=== PATIENT | female | born 1950 | race African-American/Black ===

== ENCOUNTER 2024-04-16 15:51 | Emergency (ER) | payer OTHER ==
[~2024-04-16] VITALS: Ht 160 cm; Wt 48.4 kg
[2024-04-16 16:42] LABS: Hematocrit 22.6 % (36.0-46.0); Red Cell Distribution Width 15.8 % (11.8-14.3)
[2024-04-16 16:44] LABS: Hemoglobin 7.8 g/dL (12.2-16.2); Mean Corpuscular Hemoglobin 34.2 pg (28.0-32.0); Mean Corpuscular Hgb Conc. 34.7 g/dL (32.0-36.0); Mean Corpuscular Volume 98.5 fL (80.0-100.0); Platelet Count (auto) 189 10^3/uL (140-450); White Blood Cell 4.1 10^3/uL (4.4-10.8)
[2024-04-16 16:49] LABS: Urine Bacteria None Seen /hpf (None Seen)
[2024-04-16 16:57] LABS: Band Neutrophils % (manual) 0; Basophils % (manual) 0 (0.0-2.0); Blast Cells 0; Eosinophils % (manual) 0 (0-7); Metamyelocytes % 0; Myelocytes % 0; Promyelocytes % 0; Reactive Lymphocytes 0
[2024-04-16 17:06] LABS: Alanine Aminotransferase 71 U/L (7-40); Alkaline Phosphatase 203 U/L (46-116); Anion Gap 9 (5-15); Aspartate Aminotransferase 97 U/L (13-40); BUN/Creatinine Ratio 11.9 (10.0-20.0); Blood Urea Nitrogen 10 mg/dL (9-23); Calcium 10.1 mg/dL (8.7-10.4); Carbon Dioxide 18 mmol/L (20-31); Chloride 112 mmol/L (98-107); Glucose 82 mg/dL (74-106); Potassium 3.4 mmol/L (3.5-5.1); Sodium 139 mmol/L (136-145)
[2024-04-16 17:07] LABS: Albumin 3.8 g/dL (3.2-4.8); Bilirubin, Total 7.3 mg/dL (0.2-1.0); Total Protein 8.2 g/dL (5.7-8.2)
[2024-04-16 17:14] LABS: Lipase 1392 U/L (12-53)
[2024-04-16 17:25] LABS: Urine Blood Negative /uL (Negative); Urine Clarity Clear (Clear); Urine Color Dark-Yellow (Yellow); Urine Protein, UAD Negative (Negative); Urine Specific Gravity 1.014 (1.001-1.035); Urine Urobilinogen OVER mg/dL (Negative); Urine WBC 2 /hpf (0 - 5)
[2024-04-16 17:42] LABS: Anisocytosis Slight; Lymphocytes % (manual) 43 (10.0-50.0); Monocytes % (manual) 13 (0-12); Platelet Estimate Adequate
[2024-04-16 17:43] LABS: Large Platelets MODERATE; Ovalocytes FEW; Sickle Cells FEW; Target Cell FEW
--- NOTE | 2024-04-16 18:31 | DVH ---
Exam: CT CT AB PEL WITH IV CON ONLY History: ABD PAIN Comparison Study: None available at time of dictation. TECHNIQUE: Multidetector CT of the abdomen was performed from lung bases to pubic symphysis. Imaging was performed without IV contrast. Axial, coronal and sagittal multiplanar reformats were obtained fr om the axial data set by the technologist. Radiation Dose Information: CT Dose: CTDI volume is 5.07 mGy. Dose-length product is 254.65 mGy*cm FINDINGS: Evaluation of solid organs is limited due to lack of intravenous contrast use. Findings: Lung Bases: No acute or significant lung base finding. Normal heart size. No pleural or pericardial effusion. Liver: The liver is normal in size. No focal lesions. Gallbladder and Biliary Tree: Calcified gallstone Spleen: Appears diffusely calcified etiology uncertain. Tissue density is 664.93 HU Pancreas: The pancreas is grossly normal in appearance. Adrenal Glands: Unremarkable Kidneys: Kidneys are grossly normal without calculi or hydronephrosis. Bladder: Grossly unremarkable for degree of distention. Bowel: The stomach is grossly normal in appearance. Small bowel and colon are normal in caliber and d istribution. The appendix is not visualized; however, no secondary findings of acute appendicitis id entified. Ascites: Absent Lymphadenopathy: No mesenteric, retroperitoneal or periportal lymphadenopathy. Abdominal Wall and Mesentery: Unremarkable. Vasculature: The visualized abdominal aorta is normal in size and caliber. Evaluation of abdominal a nd pelvic vessels is limited due to lack of intravenous contrast. Pelvic Organs: Unremarkable Musculoskeletal: No aggressive focal bony lesions, acute fractures or dislocation. Soft tissues: Unremarkable IMPRESSION: 1. Marked increased density throughout the spleen suggesting dense calcification tissue density is 66 4 HU. Etiology uncertain is too dense to suggest hemorrhage or contrast. Aorta at the same level is 199.66 HU. 2. Gallbladder is filled with gallstones. 3. Vertical striations in multiple lumbar vertebra consistent with osseous hemangiomas. 4. No findings to suggest bowel obstruction. 5. No free air or free fluid. Radiation optimization: All CT scans at this facility use at least one of these dose optimization nikunj hniques: automated exposure control mA and/or kV adjustment per patient size (includes targeted exam s where dose is matched to clinical indication) or iterative reconstruction.
--- NOTE | 2024-04-16 19:31 | DVH ---
INDICATION: Pain. TECHNIQUE: Multiple real-time sonographic images of the abdomen were obtained. COMPARISON: None FINDINGS: The liver is homogenous in echogenicity. The liver measures 13.38 cm. No intrahepatic bili tete ductal dilatation is noted. The gallbladder wall measures 0.16 cm and is unremarkable. Cholelithiasis. Ultrasound De La Cruz's sign is negative. The common duct measures 8.7 mm cm and is unremarkable. No pericholecystic fluid is no laxmi. The right kidney measures 7.23 cm. Mild right hydronephrosis. The left kidney measures 9.78 cm. No hydronephrosis. The spleen not visualized The pancreas is not well visualized due to obscuration from bowel gas. The visualized portions of the IVC and aorta are grossly unremarkable. Proximal abdominal aorta measu res 2.8 cm. Mid abdominal aorta measures 2.3 cm. Distal abdominal aorta measures 1.58 cm. IMPRESSION: 1. Cholelithiasis with dilated common bile duct measuring 8.7 mm. Negative ultrasound De La Cruz's sign. 2. 7.23 cm long right kidney with mild hydronephrosis.
[2024-04-16] MEDS: SODIUM CHLORIDE 0.9% 1,000 ML IV ONE (19:35)
[2024-04-16] MEDS: IOHEXOL 300 MG/ML 100ML BOTTLE IJ ONE (19:35)
[2024-04-16 19:39] VITALS: PULSE 75; RESP 16; O2SAT 98
--- NOTE | 2024-04-17 02:55 | ED.PDOC ---
GI ASSESSMENT HPI Comments 40-year-old female brought in by daughter. Daughter states that they were at the grocery store today when she noticed her mother's eyes looked yellow. Patient states she has not noticed some mild upper abdominal pain over the last 2-3 weeks but thought nothing of it. Daughter states that patient's diet has been poor, eating fast food and top ramen noodles. No fever no chills no nausea no vomiting no diarrhea. Nothing makes it better, nothing makes it worse. Currently during exam patient reports very mild to little pain in her stomach region. Patient states she had not noticed her I called her turning yellow. Chief Complaint: Abdominal Pain Time Seen by MD: 16:02 Primary Care Provider: NARESH Reviewed Notes: Nurses Notes Allergies: Coded Allergies: Penicillins (Verified Allergy, Unknown, 04/16/24) Sulfa Antibiotics (Verified Allergy, Unknown, 04/16/24) Information Source: Patient Mode of Arrival: Ambulatory Past Medical History PAST MEDICAL HISTORY: Denies Family History Family History: Reviewed,noncontributory to illness, No family hx of Cancer, No family hx of DM, No family hx of Heart rahul, No family hx of HTN, No family hx ofKidney rahul, No family hx of Liver rahul, No family hx of Lung rahul, No family hx of Stroke Constitutional: reports: fatigue; denies: chills, diaphoresis, fever, malaise, sweats, weakness, others EENTM: denies: blurred vision, double vision, ear bleeding, ear discharge, ear drainage, ear pain, ear ringing, eye pain, eye redness, hearing loss, mouth pain, mouth swelling, nasal discharge, nose bleeding, nose congestion, nose pain, photophobia, tearing, throat pain, throat swelling, voice changes, others Respiratory: denies: cough, hemoptysis, orthopnea, SOB at rest, shortness of breath, SOB with excertion, stridor, wheezing, others Cardiovascular: denies: chest pain, dizzy spells, diaphoresis, Dyspnea on exertion, edema, irregular heart beat, left arm pain, lightheadedness, palpitations, PND, syncope, others Gastrointestinal: reports: abdominal pain; denies: abdomen distended, blood streaked bowels, constipated, diarrhea, dysphagia, difficulty swallowing, hematemesis, melena, nausea, poor appetite, poor fluid intake, rectal bleeding, rectal pain, vomiting, others Genitourinary: denies: abnormal vagina bleeding, burning, dyspareunia, dysuria, flank pain, frequency, hematuria, incontinence, pain, , vagina discharge, urgency, others Neurological: denies: dizziness, fainting, headache, left sided numbness, left sided weakness, numbness, paresthesia, pre-existing deficit, right sided numbness, right sided weakness, seizure, speech problems, tingling, tremors, weakness, others Musculoskeletal: denies: back pain, gout, joint pain, joint swelling, muscle pain, muscle stiffness, neck pain, others Integumetry: reports: others (Jaundice); denies: bruises, change in color, change in hair/nails, dryness, laceration, lesions, lumps, rash, wounds Hematologic/Lymphatic: reports: anemia Physical Exam General Appearance: No Apparent Distress, Normal HEENT: Normal ENT Inspection, Pharynx Normal, Scleral Icterus (L), Scleral Icterus (R), TMs Normal Neck: Full Range of Motion, Non-Tender, Normal, Normal Inspection Respiratory: Chest Non-Tender, Lungs Clear, No Accessory Muscle Use, No Respiratory Distress, Normal Breath Sounds Cardiovascular: No Edema, No JVD, No Murmur, No Gallop, Normal Peripheral Pulses, Regular Rate/Rhythm Breast Exam: Deferred Gastrointestinal: No Organomegaly, Non Tender, No Pulsatile Mass, Normal Bowel Sounds, Soft Genitalia: Deferred Pelvic: Deferred Rectal: Deferred Extremities: No calf tenderness, Normal capillary refill, Normal inspection, Normal range of motion, Non-tender, No pedal edema Musculoskeletal : Apperance: Normal Neurologic: Alert, rn heart II-XII nml as Tested, No Motor Deficits, Normal Affect, Normal Mood, No Sensory Deficits Cerebellar Function: Normal Reflexes: Normal Skin: Dry, Normal Color, Warm Lymphatic: No Adenopathy Was a procedure done? Was a procedure done?: No GI differential Dx Differential Diagnosis: Cholangitis, Cholecystitis, Constipation, Gastritis/PUD, Gastroenteritis, GI hemorrhage X-Ray, Labs, Meds, VS Vital Signs Date Time Temp Pulse Resp B/P (MAP) Pulse Ox O2 Delivery O2 Flow Rate FiO2 04/16/24 19:39 98.4 75 16 124/55 (78) 98 98.4 04/16/24 19:39 75 16 98 Room Air* 0 21 04/16/24 16:00 98.8 100 20 139/82 (101) 98 Lab Test 04/16/24 16:48 04/16/24 16:20 Range/Units Urine Color Dark-yellow Yellow Urine Clarity Clear Clear Urine pH 6.0 5.0-9.0 Urine Specific [place] 1.014 1.001-1.035 Urine Protein Negative Negative Urine Ketones Negative Negative Urine Blood Negative Negative /uL Urine Nitrite Negative Negative Urine Bilirubin 2+ H Negative Urine Urobilinogen Over Negative mg/dL Urine Leukocyte Esterase Negative Negative /uL Urine RBC <1 0 - 4 /hpf Urine WBC 2 0 - 5 /hpf Urine Squamous Epithelial Cells None seen <5 /hpf Urine Bacteria None seen None Seen /hpf Urine Glucose Normal Normal mg/dL White Blood Count 4.1 L 4.4-10.8 10^3/uL Red Blood Count 2.30 L 4.0-5.20 10^6/uL Hemoglobin 7.8 L 12.2-16.2 g/dL Hematocrit 22.6 L 36.0-46.0 % Mean Corpuscular Volume 98.5 80.0-100.0 fL Mean Corpuscular Hemoglobin 34.2 H 28.0-32.0 pg Mean Corpuscular Hemoglobin Concent 34.7 32.0-36.0 g/dL Red Cell Distribution Width 15.8 H 11.8-14.3 % Platelet Count 189 140-450 10^3/uL Mean Platelet Volume 9.9 6.9-10.8 fL Neutrophils (%) (Auto) 37.0-80.0 % Lymphocytes (%) (Auto) 10.0-50.0 % Monocytes (%) (Auto) 0.0-12.0 % Basophils (%) (Auto) 0.0-2.0 % Neutrophils # (Auto) 1.6-8.6 10 ^3/uL Lymphocytes # (Auto) 0.4-5.4 10 ^3/uL Monocytes # (Auto) 0-1.3 10 ^3/uL Differential Total Cells Counted 100.0 100 Neutrophils % (Manual) 44 37.0-80.0 Band Neutrophils % (Manual) 0 Lymphocytes % (Manual) 43 10.0-50.0 Monocytes % (Manual) 13 H 0-12 Eosinophils % (Manual) 0 0-7 Basophils % (Manual) 0 0.0-2.0 Metamyelocytes % (manual) 0 Myelocytes % (Manual) 0 Promyelocytes % (Manual) 0 Blast Cells % (Manual) 0 Nucleated Red Blood Cells 7.0 % Reactive Lymphocytes 0 Platelet Estimate Adequate Large Platelets Moderate Anisocytosis (manual) Slight Sickle Cells Few Target Cells Few Ovalocytes Few [place] Cells Few Sodium Level 139 136-145 mmol/L Potassium Level 3.4 L 3.5-5.1 mmol/L Chloride Level 112 H 98-107 mmol/L Carbon Dioxide Level 18 L 20-31 mmol/L Anion Gap 9 5-15 Blood Urea Nitrogen 10 9-23 mg/dL Creatinine 0.84 0.550-1.02 mg/dL Glomerular Filtration Rate Calc 73 >90 mL/min BUN/Creatinine Ratio 11.9 10.0-20.0 Serum Glucose 82 74-106 mg/dL Calcium Level 10.1 8.7-10.4 mg/dL Total Bilirubin 7.3 H 0.2-1.0 mg/dL Aspartate Amino Transferase (AST) 97 H 13-40 U/L Alanine Aminotransferase (ALT) 71 H 7-40 U/L Alkaline Phosphatase 203 H 46-116 U/L Ammonia 10 L 11-32 umol/L Total Protein 8.2 5.7-8.2 g/dL Albumin 3.8 3.2-4.8 g/dL Lipase 1392 H 12-53 U/L Current Medications Medications (Trade) Dose Ordered Sig/Jodi Route Start Time Stop Time Status Last Admin Sodium Chloride 1,000 ml @ 1,000 mls/hr Q1H ONCE IV 04/16/24 18:30 04/16/24 19:29 DC 04/16/24 19:35 X-Ray, Labs, Meds, VS Comment Pending call back from [facility] for transfer to higher level of care Patient will require ERCP further evaluation of obstruction of common bile duct Time of 1ST Reevaluation: 02:55 Reevaluation 1ST: Unchanged Patient Education/Counseling: Diagnosis, Treatment Family Education/Counseling: Diagnosis, Treatment Assigned to Dr. Souza discussed with Dr. Stern Change of Shift?: Yes Departure 1 Departure Time of Disposition: 02:53 Impression: Primary Impression: Acute gallstone pancreatitis Additional Impressions: Gallstones Common bile duct dilatation Sickle cell anemia Qualified Codes: D57.1 - Sickle-cell disease without crisis Disposition: 02 SHORT TERM HOSPITAL Condition: Stable Discharged With: Self Critical Care Note Critical Care Time?: No Stability Stability form required: No Heart Score Heart Score: Heart Score Response (Comments) Value History N/A 0 EKG N/A 0 Age N/A 0 Risk Factors N/A 0 Troponin N/A 0 Total 0 ANKITA AQUINOP Apr 17, 2024 02:55
[2024-04-17 04:30] VITALS: BP 126/61; PULSE 82; RESP 24; TEMP 98; O2SAT 94
== END 2024-04-17 00:29 | disposition short-term general hospital (02) ==
LOC: ER 15:51
DX: K85.10 Biliary acute pancreatitis without necrosis or infection (principal); D57.1 Sickle-cell disease without crisis; Z88.0 Allergy status to penicillin; Z88.2 Allergy status to sulfonamides
CPT/HCPCS: 36415; 74177; 76700; 80053; 81001; 82140; 83690; 85007; 85027; 96360; 96361; 99285; Q9967

== ENCOUNTER 2024-05-15 11:46 | Inpatient (IN) | payer OTHER ==
[~2024-05-15] VITALS: Ht 160 cm; Wt 44.0 kg
[2024-05-15] MEDS: SODIUM CHLORIDE 0.9% 500 ML IV ONE (12:13)
--- NOTE | 2024-05-15 12:56 | DVH ---
CHEST RADIOGRAPH Indication: weakness Technique: Single frontal view of the chest was obtained Comparison: None FINDINGS: Lines and Tubes: None Lungs: No focal consolidation. Diffuse bilateral interstitial prominence. Mild hyperinflation of the lungs. Pleura: No effusion. No pneumothorax. Cardiomediastinal contours: Unremarkable Bones: No acute osseous abnormality. IMPRESSION: 1. Diffuse bilateral interstitial prominence. Recommend correlation for possible pulmonary vascular congestion, atypical infection, or pneumonitis. 2. Mild hyperinflation of the lungs. HS:Y
[2024-05-15 13:00] VITALS: PULSE 82; RESP 22; O2SAT 100
[2024-05-15 13:30] LABS: Alkaline Phosphatase 73 U/L (46-116); Anion Gap 11 (5-15); Calcium 9.9 mg/dL (8.7-10.4); Sodium 139 mmol/L (136-145)
[2024-05-15 13:31] LABS: Total Protein 6.9 g/dL (5.7-8.2)
[2024-05-15 14:06] LABS: Hematocrit 12.4 % (36.0-46.0); White Blood Cell 8.4 10^3/uL (4.4-10.8)
[2024-05-15 14:08] LABS: Mean Corpuscular Hemoglobin 35.6 pg (28.0-32.0); Mean Corpuscular Hgb Conc. 35.2 g/dL (32.0-36.0); Platelet Count (auto) 138 10^3/uL (140-450); Red Blood Cells 1.23 10^6/uL (4.0-5.20)
[2024-05-15 14:10] LABS: Alanine Aminotransferase 30 U/L (7-40); BUN/Creatinine Ratio 32.8 (10.0-20.0)
[2024-05-15 14:11] LABS: COVID19 ANTIGEN SOFIA FIA NEGATIVE (NEGATIVE)
[2024-05-15 14:11] LABS: Albumin 2.9 g/dL (3.2-4.8); Aspartate Aminotransferase 162 U/L (13-40); Blood Urea Nitrogen 41 mg/dL (9-23); Carbon Dioxide 19 mmol/L (20-31); Chloride 109 mmol/L (98-107); Glucose 163 mg/dL (74-106)
[2024-05-15 14:12] LABS: Lactic Acid w/Reflex 5.5 mmol/L (0.4-2.0)
[2024-05-15 14:16] LABS: Red Cell Distribution Width 23.2 % (11.8-14.3)
[2024-05-15 14:18] LABS: Band Neutrophils % (manual) 0; Basophils % (manual) 0 (0.0-2.0); Blast Cells 0; Eosinophils % (manual) 0 (0-7); Hemoglobin 4.4 g/dL (12.2-16.2); Metamyelocytes % 0; Myelocytes % 0; Promyelocytes % 0; Reactive Lymphocytes 0
[2024-05-15 14:36] LABS: Large Platelets FEW; Lymphocytes % (manual) 21 (10.0-50.0); Monocytes % (manual) 13 (0-12); Platelet Estimate Decrea
[2024-05-15 14:37] LABS: Anisocytosis Slight; Hypochromia Slight; Macrocytosis Slight; Target Cell MODERATE
[2024-05-15 14:40] LABS: Sickle Cells FEW
--- NOTE | 2024-05-15 15:18 | DVHHP2 ---
Review of Systems Allergies: Coded Allergies: Penicillins (Verified Allergy, Unknown, 04/16/24) Sulfa Antibiotics (Verified Allergy, Unknown, 04/16/24) Exam Vital Signs Vital Signs Date Time Temp Pulse Resp B/P (MAP) Pulse Ox O2 Delivery O2 Flow Rate FiO2 05/15/24 12:11 99 11 106/60 (75) 97 05/15/24 11:51 97.5 Labs/Xrays Labs Test 05/15/24 15:00 05/15/24 13:41 05/15/24 13:00 05/15/24 12:53 Range/Units White Blood Count 8.4 4.4-10.8 10^3/uL Red Blood Count 1.23 L 4.0-5.20 10^6/uL Hemoglobin 4.4 *L 12.2-16.2 g/dL Hematocrit 12.4 L 36.0-46.0 % Mean Corpuscular Volume 101.0 H 80.0-100.0 fL Mean Corpuscular Hemoglobin 35.6 H 28.0-32.0 pg Mean Corpuscular Hemoglobin Concent 35.2 32.0-36.0 g/dL Red Cell Distribution Width 23.2 H 11.8-14.3 % Platelet Count 138 L 140-450 10^3/uL Mean Platelet Volume 9.9 6.9-10.8 fL Neutrophils (%) (Auto) 37.0-80.0 % Lymphocytes (%) (Auto) 10.0-50.0 % Monocytes (%) (Auto) 0.0-12.0 % Basophils (%) (Auto) 0.0-2.0 % Neutrophils # (Auto) 1.6-8.6 10 ^3/uL Lymphocytes # (Auto) 0.4-5.4 10 ^3/uL Monocytes # (Auto) 0-1.3 10 ^3/uL Differential Total Cells Counted 100.0 100 Neutrophils % (Manual) 66 37.0-80.0 Band Neutrophils % (Manual) 0 Lymphocytes % (Manual) 21 10.0-50.0 Monocytes % (Manual) 13 H 0-12 Eosinophils % (Manual) 0 0-7 Basophils % (Manual) 0 0.0-2.0 Metamyelocytes % (manual) 0 Myelocytes % (Manual) 0 Promyelocytes % (Manual) 0 Blast Cells % (Manual) 0 Nucleated Red Blood Cells 4.0 % Reactive Lymphocytes 0 Platelet Estimate Decrea Large Platelets Few Hypochromasia (manual) Slight Anisocytosis (manual) Slight Macrocytosis Slight Sickle Cells Few Target Cells Moderate Schistocytes Few SARS-CoV-2 Antigen (Rapid) Negative NEGATIVE Sodium Level 139 136-145 mmol/L Potassium Level 4.0 3.5-5.1 mmol/L Chloride Level 109 H 98-107 mmol/L Carbon Dioxide Level 19 L 20-31 mmol/L Anion Gap 11 5-15 Blood Urea Nitrogen 41 H 9-23 mg/dL Creatinine 1.25 H 0.550-1.02 mg/dL Glomerular Filtration Rate Calc 45 >90 mL/min BUN/Creatinine Ratio 32.8 H 10.0-20.0 Serum Glucose 163 H 74-106 mg/dL Calcium Level 9.9 8.7-10.4 mg/dL Total Bilirubin 5.0 H 0.2-1.0 mg/dL Aspartate Amino Transferase (AST) 162 H 13-40 U/L Alanine Aminotransferase (ALT) 30 7-40 U/L Alkaline Phosphatase 73 46-116 U/L Total Protein 6.9 5.7-8.2 g/dL Albumin 2.9 L 3.2-4.8 g/dL Assessment/Plan Plan discussed with: Patient TEE RODRIGUEZ MEDICAID SERVICE COORDINATOR May 15, 2024 15:18
[2024-05-15] MEDS ORDERED: MORPHINE SULFATE INJ 2 MG/ml SYRG IV PRN (16:15)
[2024-05-15] MEDS ORDERED: NITROGLYCERIN 0.4 MG SL TAB SL PRN (16:15)
--- NOTE | 2024-05-15 16:26 | DVHHP2 ---
History of Present Illness HPI 74 F who comes to ER for weakness. She was discharged from this facility end of April after blood transfusion as she has sickle cell anemia and takes hydroxyurea at home. She return today with a hgb of 4.4 and lactic acidemia in the setting of anemia and volume depletion. She will be admitted to [facility] for 3 units PRBC transfusion and supportive care. Home Meds No Active Prescriptions or Reported Meds Chief Complaint of Abdominal/F: Nausea Past Medical History Patient Family History: Patient reports no known family medical history. Review of Systems Constitutional: Weakness Ears, Nose, & Throat: No symptom reported Eyes: No symptom reported Pulmonary/Respiratory: No symptom reported Gastrointestinal: Nausea Musculoskeletal: No symptom reported Psychiatric: No symptom reported H&P Exam Vital Signs Vital Signs Date Time Temp Pulse Resp B/P (MAP) Pulse Ox O2 Delivery O2 Flow Rate FiO2 05/15/24 12:11 99 11 106/60 (75) 97 05/15/24 11:51 97.5 General Appeara: Well developed Neck Exam: Normal inspection Abdominal Exam: Soft Back Exam: Normal inspection Labs/Xrays Labs Test 05/15/24 15:41 05/15/24 15:00 05/15/24 13:41 05/15/24 13:00 Range/Units Lactic Acid Level 3.9 *H 0.4-2.0 mmol/L White Blood Count 8.4 4.4-10.8 10^3/uL Red Blood Count 1.23 L 4.0-5.20 10^6/uL Hemoglobin 4.4 *L 12.2-16.2 g/dL Hematocrit 12.4 L 36.0-46.0 % Mean Corpuscular Volume 101.0 H 80.0-100.0 fL Mean Corpuscular Hemoglobin 35.6 H 28.0-32.0 pg Mean Corpuscular Hemoglobin Concent 35.2 32.0-36.0 g/dL Red Cell Distribution Width 23.2 H 11.8-14.3 % Platelet Count 138 L 140-450 10^3/uL Mean Platelet Volume 9.9 6.9-10.8 fL Neutrophils (%) (Auto) 37.0-80.0 % Lymphocytes (%) (Auto) 10.0-50.0 % Monocytes (%) (Auto) 0.0-12.0 % Basophils (%) (Auto) 0.0-2.0 % Neutrophils # (Auto) 1.6-8.6 10 ^3/uL Lymphocytes # (Auto) 0.4-5.4 10 ^3/uL Monocytes # (Auto) 0-1.3 10 ^3/uL Differential Total Cells Counted 100.0 100 Neutrophils % (Manual) 66 37.0-80.0 Band Neutrophils % (Manual) 0 Lymphocytes % (Manual) 21 10.0-50.0 Monocytes % (Manual) 13 H 0-12 Eosinophils % (Manual) 0 0-7 Basophils % (Manual) 0 0.0-2.0 Metamyelocytes % (manual) 0 Myelocytes % (Manual) 0 Promyelocytes % (Manual) 0 Blast Cells % (Manual) 0 Nucleated Red Blood Cells 4.0 % Reactive Lymphocytes 0 Platelet Estimate Decrea Large Platelets Few Hypochromasia (manual) Slight Anisocytosis (manual) Slight Macrocytosis Slight Sickle Cells Few Target Cells Moderate Schistocytes Few SARS-CoV-2 Antigen (Rapid) Negative NEGATIVE Test 05/15/24 12:53 Range/Units Sodium Level 139 136-145 mmol/L Potassium Level 4.0 3.5-5.1 mmol/L Chloride Level 109 H 98-107 mmol/L Carbon Dioxide Level 19 L 20-31 mmol/L Anion Gap 11 5-15 Blood Urea Nitrogen 41 H 9-23 mg/dL Creatinine 1.25 H 0.550-1.02 mg/dL Glomerular Filtration Rate Calc 45 >90 mL/min BUN/Creatinine Ratio 32.8 H 10.0-20.0 Serum Glucose 163 H 74-106 mg/dL Calcium Level 9.9 8.7-10.4 mg/dL Total Bilirubin 5.0 H 0.2-1.0 mg/dL Aspartate Amino Transferase (AST) 162 H 13-40 U/L Alanine Aminotransferase (ALT) 30 7-40 U/L Alkaline Phosphatase 73 46-116 U/L Total Protein 6.9 5.7-8.2 g/dL Albumin 2.9 L 3.2-4.8 g/dL Assessment/Plan Primary Diagnosis 1) Anemia 2) Sickle cell Dx 3) Hyperbilirubinemia 2/2 sickle cell Dz, had recent ERCP as outside facility with sphincterotomy, no obstruction seen 04/17/2024 4) Lactic acidemia plan; admit tele obs, transfuse 3 units prbcs, pt recently seen at outside facility on 04/17/24 for elevated bilirubin and had ercp with spincterotomy but no obstruction or stones seen, rather elevated bilirubin deemed to be in the setting of sickle cell Dz and cell turnover, IV hydration, repeat H/H after blood transfusion, obs Plan discussed with: Other ( n) SANJANA SHUKLA MD May 15, 2024 16:26
[2024-05-15] MEDS: SODIUM CHLORIDE 0.9% 1,000 ML IV ONE (16:32)
[2024-05-15 16:35] LABS: Urine Amorphous Crystal FEW /hpf (None Seen); Urine Bacteria FEW /hpf (None Seen); Urine Blood 3+ /uL (Negative); Urine Clarity Turbid (Clear); Urine Color Dark-Brown (Yellow); Urine Protein, UAD 2+ (Negative); Urine Specific Gravity 1.011 (1.001-1.035); Urine Urobilinogen Normal (Negative); Urine WBC 32 /hpf (0 - 5); Urine WBC Clumps PRESENT /hpf (None Seen); Urine pH 6.5 (5.0-9.0)
[2024-05-15 17:41] VITALS: BP 126/57; PULSE 82; RESP 22; TEMP 97.9; O2SAT 100; O2SAT 99
[2024-05-15 17:44] LABS: INR 1.18 (0.9-1.15); Prothrombin Time 12.4 sec (9.3-11.8)
[2024-05-15] MEDS ORDERED: ONDANSETRON HCL 4 MG/2 ML VIAL IV ONE (18:00)
[2024-05-15] MEDS: LORazepam 2MG/ML-1ML VIAL IV ONE (18:11)
--- NOTE | 2024-05-15 18:20 | ED.PDOC ---
History of Present Illness HPI Comments This is a 74-year-old female who comes in with chief complaint of generalized weakness. According to the family, the patient was seen by her primary care doctor today. She went to the restroom and became very weak. They also noticed that the patient had blood in the toilet which they thought was hematuria. Her vital signs have remained normal. Currently she is on 2 L of oxygen but at that time her oxygen saturation was only 78%. The patient was then increased on her oxygen and transported to our facility. She does have a history of sickle cell disease as well as gallbladder disease but they are stating that she seems to be more weak. The patient was transferred to our facility by EMS. She has been seen at [facility] in the past. Chief Complaint: General Weakness Time Seen by MD: 11:55 Primary Care Provider: UNKNOWN Reviewed Notes: Nurses Notes, Glass Scullion Notes, Medications, Allergies (Allergies listed above) Allergies: Coded Allergies: Penicillins (Verified Allergy, Unknown, 04/16/24) Sulfa Antibiotics (Verified Allergy, Unknown, 04/16/24) Home Meds No Active Prescriptions or Reported Meds Information Source: Patient, Emergency Med Personnel Mode of Arrival: EMS Severity: Moderate Timing: Days Duration: Since onset Prehospital treatment: Oncology Pharmacist, IVF Associated signs and symptoms Generalized weakness, electrolyte imbalance Past Medical History PAST MEDICAL HISTORY: Gallstones Past Medical History (Other): Sickle cell disease Surgical History (Other): Right foot surgery ENTERPRISE APPLICATION ADMINISTRATOR History: Denies all ENTERPRISE APPLICATION ADMINISTRATOR Hx Family History Family History: Family hx of DM Social History Smoker: Non-Smoker Alcohol: Denies ETOH Use Drugs: Marijuana Lives In: Home Constitutional: reports: weakness; denies: chills, diaphoresis, fatigue, fever, malaise, sweats, others EENTM: denies: blurred vision, double vision, ear bleeding, ear discharge, ear drainage, ear pain, ear ringing, eye pain, eye redness, hearing loss, mouth pain, mouth swelling, nasal discharge, nose bleeding, nose congestion, nose pain, photophobia, tearing, throat pain, throat swelling, voice changes, others Respiratory: denies: cough, hemoptysis, orthopnea, SOB at rest, shortness of breath, SOB with excertion, stridor, wheezing, others Cardiovascular: denies: chest pain, dizzy spells, diaphoresis, Dyspnea on exertion, edema, irregular heart beat, left arm pain, lightheadedness, palpitations, PND, syncope, others Gastrointestinal: denies: abdomen distended, abdominal pain, blood streaked bowels, constipated, diarrhea, dysphagia, difficulty swallowing, hematemesis, melena, nausea, poor appetite, poor fluid intake, rectal bleeding, rectal pain, vomiting, others Genitourinary: reports: hematuria; denies: abnormal vagina bleeding, burning, dyspareunia, dysuria, flank pain, frequency, incontinence, pain, , vagina discharge, urgency, others Neurological: denies: dizziness, fainting, headache, left sided numbness, left sided weakness, numbness, paresthesia, pre-existing deficit, right sided numbness, right sided weakness, seizure, speech problems, tingling, tremors, weakness, others Musculoskeletal: denies: back pain, gout, joint pain, joint swelling, muscle pain, muscle stiffness, neck pain, others Integumetry: denies: bruises, change in color, change in hair/nails, dryness, laceration, lesions, lumps, rash, wounds, others Allergic/Immunocompromised: denies: Difficulty Healing, Frequent Infections, Hives, Itching, others Hematologic/Lymphatic: denies: anemia, blood clots, easy bleeding, easy bruising, swollen glands, others Endocrine: denies: excessive hunger, excessive sweating, excessive thirst, excessive urination, flushing, intolerance to cold, intolerance to heat, unexplained weight gain, unexplained weight loss, others Psychiatric: denies: anxiety, bipolar disorder, depression, hopeless, panic disorder, schizophrenia, sleepless, suicidal, others Physical Exam General Appearance: Moderate Distress, Thin HEENT: Normal ENT Inspection, Pharynx Normal, TMs Normal Neck: Full Range of Motion, Non-Tender, Normal, Normal Inspection Respiratory: Chest Non-Tender, Lungs Clear, No Accessory Muscle Use, No Respiratory Distress, Normal Breath Sounds Cardiovascular: No Edema, No JVD, No Murmur, No Gallop, Normal Peripheral Pulses, Regular Rate/Rhythm Breast Exam: Deferred Gastrointestinal: No Organomegaly, Non Tender, No Pulsatile Mass, Normal Bowel Sounds, Soft Genitalia: Deferred Pelvic: Deferred Rectal: Deferred Extremities: No calf tenderness, Normal capillary refill, Normal inspection, Normal range of motion, Non-tender, No pedal edema Musculoskeletal : Apperance: Normal Neurologic: women's studies professor II-XII nml as Tested, Motor Weakness, Normal Affect, Normal Mood, No Sensory Deficits, Other (Generalized weakness) Cerebellar Function: Normal Reflexes: Normal Skin: Dry, Pallor, Warm Lymphatic: No Adenopathy Was a procedure done? Was a procedure done?: No EKG EKG : Pulse Rate (adult): 98 [place]in: Normal Cardiac Rhythm: NSR Block: None ST: Nonsp Differential Dx Considerations may include: Generalized weakness, electrolyte imbalance, dehydration, UTI X-Ray, Labs, Meds, VS Vital Signs Date Time Temp Pulse Resp B/P (MAP) Pulse Ox O2 Delivery O2 Flow Rate FiO2 05/15/24 16:00 81 25 142/70 (94) 98 05/15/24 16:00 81 05/15/24 14:00 77 19 141/61 (87) 99 05/15/24 12:11 99 11 106/60 (75) 97 05/15/24 12:09 93 05/15/24 12:01 98 05/15/24 11:51 97.5 111 22 126/61 (82) 90 Lab Test 05/15/24 15:41 05/15/24 15:00 05/15/24 13:41 05/15/24 13:00 Range/Units Urine Color Dark-brown Yellow Urine Clarity Turbid H Clear Urine pH 6.5 5.0-9.0 Urine Specific [place] 1.011 1.001-1.035 Urine Protein 2+ H Negative Urine Ketones Negative Negative Urine Blood 3+ H Negative /uL Urine Nitrite Negative Negative Urine Bilirubin Negative Negative Urine Urobilinogen Normal Negative mg/dL Urine Leukocyte Esterase Trace Negative /uL Urine RBC 4 0 - 4 /hpf Urine WBC 32 0 - 5 /hpf Urine WBC Clumps Present None Seen /hpf Urine Squamous Epithelial Cells None seen <5 /hpf Urine Amorphous Crystals Few None Seen /hpf Urine Bacteria Few H None Seen /hpf Urine Glucose Normal Normal mg/dL Lactic Acid Level 3.9 *H 0.4-2.0 mmol/L White Blood Count 8.4 4.4-10.8 10^3/uL Red Blood Count 1.23 L 4.0-5.20 10^6/uL Hemoglobin 4.4 *L 12.2-16.2 g/dL Hematocrit 12.4 L 36.0-46.0 % Mean Corpuscular Volume 101.0 H 80.0-100.0 fL Mean Corpuscular Hemoglobin 35.6 H 28.0-32.0 pg Mean Corpuscular Hemoglobin Concent 35.2 32.0-36.0 g/dL Red Cell Distribution Width 23.2 H 11.8-14.3 % Platelet Count 138 L 140-450 10^3/uL Mean Platelet Volume 9.9 6.9-10.8 fL Neutrophils (%) (Auto) 37.0-80.0 % Lymphocytes (%) (Auto) 10.0-50.0 % Monocytes (%) (Auto) 0.0-12.0 % Basophils (%) (Auto) 0.0-2.0 % Neutrophils # (Auto) 1.6-8.6 10 ^3/uL Lymphocytes # (Auto) 0.4-5.4 10 ^3/uL Monocytes # (Auto) 0-1.3 10 ^3/uL Differential Total Cells Counted 100.0 100 Neutrophils % (Manual) 66 37.0-80.0 Band Neutrophils % (Manual) 0 Lymphocytes % (Manual) 21 10.0-50.0 Monocytes % (Manual) 13 H 0-12 Eosinophils % (Manual) 0 0-7 Basophils % (Manual) 0 0.0-2.0 Metamyelocytes % (manual) 0 Myelocytes % (Manual) 0 Promyelocytes % (Manual) 0 Blast Cells % (Manual) 0 Nucleated Red Blood Cells 4.0 % Reactive Lymphocytes 0 Platelet Estimate Decrea Large Platelets Few Hypochromasia (manual) Slight Anisocytosis (manual) Slight Macrocytosis Slight Sickle Cells Few Target Cells Moderate Schistocytes Few Hemoglobin A1c < 4.0 <5.7 % A1C SARS-CoV-2 Antigen (Rapid) Negative NEGATIVE Test 05/15/24 12:53 Range/Units Prothrombin Time 12.4 H 9.3-11.8 sec Prothrombin Time INR 1.18 H 0.9-1.15 Sodium Level 139 136-145 mmol/L Potassium Level 4.0 3.5-5.1 mmol/L Chloride Level 109 H 98-107 mmol/L Carbon Dioxide Level 19 L 20-31 mmol/L Anion Gap 11 5-15 Blood Urea Nitrogen 41 H 9-23 mg/dL Creatinine 1.25 H 0.550-1.02 mg/dL Glomerular Filtration Rate Calc 45 >90 mL/min BUN/Creatinine Ratio 32.8 H 10.0-20.0 Serum Glucose 163 H 74-106 mg/dL Lactic Acid Level 5.5 *H 0.4-2.0 mmol/L Calcium Level 9.9 8.7-10.4 mg/dL Total Bilirubin 5.0 H 0.2-1.0 mg/dL Aspartate Amino Transferase (AST) 162 H 13-40 U/L Alanine Aminotransferase (ALT) 30 7-40 U/L Alkaline Phosphatase 73 46-116 U/L Total Protein 6.9 5.7-8.2 g/dL Albumin 2.9 L 3.2-4.8 g/dL Current Medications Medications (Trade) Dose Ordered Sig/Jodi Route Start Time Stop Time Status Last Admin Sodium Chloride 500 ml @ 500 mls/hr Q1H ONCE IV 05/15/24 12:15 05/15/24 13:14 DC 05/15/24 12:13 The patient's CBC shows significant anemia with a hemoglobin of 4.4 and hematocrit 12.4 The BUN is 41 and the creatinine is 1.25 At this time the patient's lactic acid level is elevated at 5.5 The patient's total bilirubin is 5.0 The patient does have a history of gallstones so we will refer the ultrasound or any imaging to the hospitalist at this time The patient was given a bolus of normal saline at 500 cc We did type and screen the patient to be transfused with 2 units of packed red blood cells The patient's family is now at bedside and they have discussed some of the previous findings on other admissions at another facility The patient also has a diagnosis of UTI The patient was being admitted at this time Images Reviewed?: Images reviewed and evaluated by me Time of 1ST Reevaluation: 18:46 Reevaluation 1ST: Unchanged Time of 2ND Reevaluation: 18:47 Reevaluation 2ND: Unchanged Patient Education/Counseling: Diagnosis, Treatment, Prognosis Family Education/Counseling: Diagnosis, Treatment, Prognosis Departure 1 Departure Time of Disposition: 18:47 Impression: Primary Impression: Gallstones Additional Impressions: Sickle cell anemia Qualified Codes: D57.1 - Sickle-cell disease without crisis Symptomatic anemia Elevated lactic acid level Disposition: 09 ADMITTED INPATIENT Admit to: Tele Condition: Fair e-Prescriptions No Active Prescriptions or Reported Meds Critical Care Note Critical Care Time?: Yes (45 min-critical care time only) Stability Stability form required: Yes Unstable for transfer: Telemetry monitoring (Telemetry monitoring required), ED Physician Assesment (Clinical assesment) Heart Score Heart Score: Heart Score Response (Comments) Value History N/A 0 EKG N/A 0 Age N/A 0 Risk Factors N/A 0 Troponin N/A 0 Total 0 AISHA VALENTINE MD May 15, 2024 18:20
[2024-05-15] MEDS: HYDROcodone-ACET 10/325MG TAB PO ONE (18:26)
[2024-05-15 21:00] VITALS: BP 133/69; PULSE 85; RESP 17; TEMP 98.3; O2SAT 98
[2024-05-16] VITALS (15 sets, daily range): BP systolic 95–135; BP diastolic 51–74; PULSE 76–120; RESP 16–25; TEMP 98–99.4; O2SAT 95–100
[2024-05-16] MEDS: HYDROMORPHONE HCL 1 MG/ML INJ IV PRN (01:16)
[2024-05-16 07:14] LABS: Hematocrit 10.7 % (36.0-46.0); Mean Corpuscular Hemoglobin 34.8 pg (28.0-32.0); Mean Corpuscular Hgb Conc. 34.6 g/dL (32.0-36.0); Mean Corpuscular Volume 100.6 fL (80.0-100.0); Platelet Count (auto) 148 10^3/uL (140-450); Red Blood Cells 1.07 10^6/uL (4.0-5.20); White Blood Cell 9.7 10^3/uL (4.4-10.8)
[2024-05-16 07:18] LABS: Anion Gap 10 (5-15); Carbon Dioxide 22 mmol/L (20-31); Potassium 3.5 mmol/L (3.5-5.1); Sodium 144 mmol/L (136-145)
[2024-05-16 07:24] LABS: BUN/Creatinine Ratio 33.6 (10.0-20.0); Glucose 105 mg/dL (74-106)
[2024-05-16 07:25] LABS: Blood Urea Nitrogen 40 mg/dL (9-23); Calcium 10.6 mg/dL (8.7-10.4); Chloride 112 mmol/L (98-107)
[2024-05-16 07:37] LABS: Red Cell Distribution Width 22.8 % (11.8-14.3)
[2024-05-16 07:40] LABS: Hemoglobin 3.7 g/dL (12.2-16.2)
[2024-05-16 07:41] LABS: Band Neutrophils % (manual) 0; Basophils % (manual) 0 (0.0-2.0); Blast Cells 0; Eosinophils % (manual) 0 (0-7); Metamyelocytes % 0; Myelocytes % 0; Promyelocytes % 0; Reactive Lymphocytes 0
[2024-05-16 09:11] LABS: Lymphocytes % (manual) 46 (10.0-50.0); Monocytes % (manual) 9 (0-12)
[2024-05-16 09:13] LABS: Anisocytosis Slight; Hypochromia Slight; Macrocytosis Slight
[2024-05-16 09:14] LABS: Large Platelets FEW; Target Cell FEW
[2024-05-16 09:23] LABS: % Iron Saturation 90.8 % (15-50)
[2024-05-16 09:26] LABS: Folate (Folic Acid) 13.74 ng/mL (>5.38)
[2024-05-16 09:31] LABS: Platelet Estimate Adequate
[2024-05-16] MEDS: PANTOPRAZOLE 40 MG/10 ML VIAL INJ IV SCH (10:31)
--- NOTE | 2024-05-16 10:33 | DVH ---
INDICATION: hematuria, severe anemia TECHNIQUE: Multiple real-time sonographic images of the kidneys and bladder were obtained. COMPARISON: 04/16/2024 FINDINGS: The right kidney measures 9.5 cm in length, which is normal in size. There is increased echogenicity of the right kidney. Mild hydronephrosis. The left kidney measures 10.2 cm in length, which is normal in size. There is increased echogenicity of the left kidney. No hydronephrosis. There is a left renal cyst measuring 1 cm. No large intraluminal masses are seen in the bladder. Prior to voiding the bladder volume measures volume 301 cc. Following voiding, the bladder volume residual measures 0 cc. IMPRESSION: Echogenic bilateral kidneys suggestive of chronic medical renal disease. Trace right hydronephrosis.
[2024-05-16 10:45] LABS: Lactic Acid w/Reflex 3.1 mmol/L (0.4-2.0)
[2024-05-16 11:16] LABS: Hepatitis B Surface Antigen Negative (Negative)
--- NOTE | 2024-05-16 11:30 | DVHINCON2 ---
Date of service: May 16, 2024 Referring Physician Kumar Pina Reason for Consultation Anemia with a history of sickle cell History of Present Illness 74 years old black female who gives a history of sickle cell anemia which has been very stable and rarely has needed any transfusion except recently in the last couple of months she has not been feeling well and complaining of pains all over her body and losing weight nearly 10 pounds over the last couple of months and She is admitted with a hemoglobin of 3.7 white count 9.7 MCV 100.6 platelets 148 with a normal differential. Reticulocyte count 3.4 BUN 14 creatinine 1.19 lactic acid 3.1 calcium 10.6 serum iron 178 saturation 90.8 ferritin 5744 total bili 5 direct bili 1.5 AST 162 ALT 70 alkaline phosphatase 73 serum ammonia 10 LDH 2355 total protein 6.9 albumin 2.9 B12 828 folate 13.74 Antibody screen was positive Renal ultrasound showed chronic medical renal disease and trace right hydronephrosis Chest x-ray showed diffuse bilateral interstitial prominence and mild hyper inflation of the lungs No chest pains. No complaints of fevers night sweats bruising or bleeding. No Complaints of significant pains or nausea vomiting or headaches Past Medical History Sickle cell hemoglobinopathy Family History: Diabetes mellitus Family History Mother and father had sickle cell trait's. She has a son and daughter which per patient they do not have any hemoglobinopathy Social History She uses marijuana. No smoking cigarettes or drinking alcohol or drug Allergies: Coded Allergies: Penicillins (Verified Allergy, Unknown, 04/16/24) Sulfa Antibiotics (Verified Allergy, Unknown, 04/16/24) Home Meds No Active Prescriptions or Reported Meds Current Medications Current Medications Medications (Trade) Dose Ordered Sig/Jodi Route PRN Reason Start Time Stop Time Status Last Admin Nitroglycerin (Ntrostat Sublingual) 0.4 mg Q5MINP PRN SL FOR CHEST PAIN 05/15/24 16:15 Morphine Sulfate 2 mg Q30M PRN IV FOR CHEST PAIN 05/15/24 16:15 Hydromorphone HCl (Dilaudid Innjection) 0.5 mg Q4HPRN PRN IV SEVERE PAIN (7-10 PAIN SCALE) 05/15/24 17:45 05/16/24 01:16 Ondansetron HCl (Zofran) 4 mg Q4HPRN PRN IV NAUSEA / VOMITING 05/15/24 18:15 Pantoprazole Sodium (Protonix) 40 mg BID IV 05/16/24 10:00 05/16/24 10:31 Vital Signs Vital Signs Date Time Temp Pulse Resp B/P (MAP) Pulse Ox O2 Delivery O2 Flow Rate FiO2 05/16/24 09:00 98.5 109 16 102/57 (72) 98 98.5 05/15/24 17:41 Non-Rebreather 12 N/A Physical Exam GENERAL: The patient is a moderately built and nourished ,Sick looking black female HEAD AND NECK: Unremarkable. No neck nodes or masses. Conjunctivae: Unremarkable for any mucosal hemorrhage or inflammation. Thyroid is nonpalpable. Throat is unremarkable. SPINE: No deformities or tenderness. CHEST: Chest wall, no tenderness. LUNGS: Clear. CARDIOVASCULAR: Regular sinus rhythm. No murmurs or gallops. ABDOMEN: No organomegaly, tenderness or ascites. Bowel sounds present. EXTREMITIES: No clubbing, edema or cyanosis. Peripheral pulses palpable. No calf tenderness. LYMPHATICS: No significant lymphadenopathy. NEUROLOGIC: No focal neurological deficits. SKIN: Unremarkable for any petechiae, purpura, or ecchymosis. Psych: No abnormalities Available data reviewed Labs/Diagnostic Data Labs Test 05/16/24 10:08 05/16/24 06:43 05/15/24 15:41 05/15/24 13:41 Range/Units Lactic Acid Level 3.1 *H 0.4-2.0 mmol/L White Blood Count 9.7 4.4-10.8 10^3/uL Red Blood Count 1.07 L 4.0-5.20 10^6/uL Hemoglobin 3.7 #*L 12.2-16.2 g/dL Hematocrit 10.7 #L 36.0-46.0 % Mean Corpuscular Volume 100.6 H 80.0-100.0 fL Mean Corpuscular Hemoglobin 34.8 H 28.0-32.0 pg Mean Corpuscular Hemoglobin Concent 34.6 32.0-36.0 g/dL Red Cell Distribution Width 22.8 H 11.8-14.3 % Platelet Count 148 140-450 10^3/uL Mean Platelet Volume 10.6 6.9-10.8 fL Neutrophils (%) (Auto) 37.0-80.0 % Lymphocytes (%) (Auto) 10.0-50.0 % Monocytes (%) (Auto) 0.0-12.0 % Basophils (%) (Auto) 0.0-2.0 % Neutrophils # (Auto) 1.6-8.6 10 ^3/uL Lymphocytes # (Auto) 0.4-5.4 10 ^3/uL Monocytes # (Auto) 0-1.3 10 ^3/uL Differential Total Cells Counted 100.0 100 Neutrophils % (Manual) 45 37.0-80.0 Band Neutrophils % (Manual) 0 Lymphocytes % (Manual) 46 10.0-50.0 Monocytes % (Manual) 9 0-12 Eosinophils % (Manual) 0 0-7 Basophils % (Manual) 0 0.0-2.0 Metamyelocytes % (manual) 0 Myelocytes % (Manual) 0 Promyelocytes % (Manual) 0 Blast Cells % (Manual) 0 Nucleated Red Blood Cells 5.0 % Reactive Lymphocytes 0 Platelet Estimate Adequate Large Platelets Few Hypochromasia (manual) Slight Anisocytosis (manual) Slight Macrocytosis Slight Target Cells Few Schistocytes Few Reticulocyte Count (auto) 3.40 H 0.5-1.5 % Sodium Level 144 # 136-145 mmol/L Potassium Level 3.5 3.5-5.1 mmol/L Chloride Level 112 H 98-107 mmol/L Carbon Dioxide Level 22 20-31 mmol/L Anion Gap 10 5-15 Blood Urea Nitrogen 40 H 9-23 mg/dL Creatinine 1.19 H 0.550-1.02 mg/dL Glomerular Filtration Rate Calc 48 >90 mL/min BUN/Creatinine Ratio 33.6 H 10.0-20.0 Serum Glucose 105 74-106 mg/dL Calcium Level 10.6 H 8.7-10.4 mg/dL Iron Level 178 H 50-170 ug/dL Total Iron Binding Capacity 196 L 250-425 ug/dL Percent Iron Saturation 90.8 H 15-50 % Ferritin 5744.0 H 10-291 ng/mL Direct Bilirubin 1.5 H <0.3 mg/dL Lactate Dehydrogenase 2355 H 120-246 U/L Vitamin B12 Level 828 211-911 pg/mL Folic Acid 13.74 >5.38 ng/mL Hepatitis B Surface Antigen Negative Negative Urine Color Dark-brown Yellow Urine Clarity Turbid H Clear Urine pH 6.5 5.0-9.0 Urine Specific [place] 1.011 1.001-1.035 Urine Protein 2+ H Negative Urine Ketones Negative Negative Urine Blood 3+ H Negative /uL Urine Nitrite Negative Negative Urine Bilirubin Negative Negative Urine Urobilinogen Normal Negative mg/dL Urine Leukocyte Esterase Trace Negative /uL Urine RBC 4 0 - 4 /hpf Urine WBC 32 0 - 5 /hpf Urine WBC Clumps Present None Seen /hpf Urine Squamous Epithelial Cells None seen <5 /hpf Urine Amorphous Crystals Few None Seen /hpf Urine Bacteria Few H None Seen /hpf Urine Glucose Normal Normal mg/dL Sickle Cells Few Hemoglobin A1c < 4.0 <5.7 % A1C Test 05/15/24 13:00 05/15/24 12:53 Range/Units SARS-CoV-2 Antigen (Rapid) Negative NEGATIVE Prothrombin Time 12.4 H 9.3-11.8 sec Prothrombin Time INR 1.18 H 0.9-1.15 Total Bilirubin 5.0 H 0.2-1.0 mg/dL Aspartate Amino Transferase (AST) 162 H 13-40 U/L Alanine Aminotransferase (ALT) 30 7-40 U/L Alkaline Phosphatase 73 46-116 U/L Total Protein 6.9 5.7-8.2 g/dL Albumin 2.9 L 3.2-4.8 g/dL Assessment 1. Anemia with some history of sickle cell and that has not bothered her for years but lately in the last 2 months she has been needing transfusions and may need to rule out other etiologies. She has high total bilirubin, high AST, indirect bilirubin is elevated, may indicate hemolysis, she has multiple antibodies so may rule out the possibility of a autoimmune hemolytic anemia 2. Possible interstitial lung disease/pneumonia 3. hematuria may rule out UTI Or any other local etiology Plan/Recommendation Hemoglobin electrophoresis Direct Joseph test Haptoglobin Transfuse the least incompatible blood If the direct Joseph is positive then the patient should be treated with the steroids May request a CT of the chest abdomen pelvis without IV contrast Evaluate the hematuria Plan discussed with: Patient DANILO CANTU MD May 16, 2024 11:30
--- NOTE | 2024-05-16 11:41 | DVHPN2 ---
Progress Note - Dictate Date Seen: May 16, 2024 Medical Necessity Reason Pt with a Central, PICC or Fol: No Subjective Patient comfortable. Denies any gross blood loss. Denies any pain. vital signs Vital Sign Date Time Temp Pulse Resp B/P (MAP) Pulse Ox O2 Delivery O2 Flow Rate FiO2 05/16/24 09:00 98.5 109 16 102/57 (72) 98 98.5 05/15/24 17:41 Non-Rebreather 12 N/A Total Intake and Output 05/15/24 05/15/24 05/16/24 15:00 23:00 07:00 Intake Total 0 ml Output Total 0 ml Balance 0 ml medications Current Medications Medications Dose Ordered Sig/Jodi Route Start Time Stop Time Status Last Admin Dose Admin Nitroglycerin 0.4 mg Q5MINP PRN SL 05/15/24 16:15 Morphine Sulfate 2 mg Q30M PRN IV 05/15/24 16:15 Hydromorphone HCl 0.5 mg Q4HPRN PRN IV 05/15/24 17:45 05/16/24 01:16 0.5 MG Ondansetron HCl 4 mg Q4HPRN PRN IV 05/15/24 18:15 Pantoprazole Sodium 40 mg BID IV 05/16/24 10:00 05/16/24 10:31 40 MG objective General appearance: No acute distress Respiratory: Lungs clear to auscultation. No wheezing, crackles Cardiovascular: Sinus tachycardia, no murmurs. No edema Abdomen: Soft, nondistended, nontender, bowel sounds present MSK: Normal range of motion. Neuro: Alert, no neurological deficits Psych: Appropriate mood and affect. laboratory and microbiology Laboratory Tests 05/16/24 06:43 Test 05/16/24 06:43 Range/Units Serum Glucose 105 74-106 mg/dL Assessment/Plan 1. Anemia due to Sickle Cell Crisis vs Autoimmune Hemolytic Anemia 2. Acute Respiratory Failure 3. JUDY Plan: -Transfusion PRBC with goal hemoglobin greater than 7 -Delay in transfusion noted due to specialized blood requested given antibodies. Estimated arrival time 12 PM to 2 PM today. -Plan to transfer patient to [facility] given critically low hemoglobin with sinus tachycardia. No hypotension noted. -Hematology/oncology consulted. Ruling out autoimmune hemoglobinemia. Labs pending. -Holding IVF at this time to prevent further dilution of hemoglobin -Pediatric tube for blood draws -Continue nasal cannula with goal oxygen >92%. -Avoid nephrotoxic medications. JUDY likely secondary to volume depletion. -Full Code Plan discussed with: Patient BRENNAN MASSEY DO May 16, 2024 11:40
[2024-05-16 11:53] LABS: Wright Stain Ready for Review
[2024-05-16 12:52] LABS: Hepatitis A Ab IgM Negative; Hepatitis B Core IgM Negative (Negative)
[2024-05-16 12:54] LABS: Hepatitis C Antibody Reactive (Negative)
--- NOTE | 2024-05-16 19:11 | ECG ---
[facility] Test Date: 2024-05-15 Test Time: 12:01:37 Pat Name: FLACO JORGE Department: ER Room: 0222T A Gender: F Codifier: DR HASTINGS: [id number] Requested By: AISHA VALENTINE Order Number: [id number] Reading MD: Collins Shirley Measurements Intervals [place] Rate: 98 P: 84 MA: 153 QRS: 79 QRSD: 81 T: 68 QT: 353 QTc: 451 Interpretive Statements Sinus rhythm Atrial premature complex Minimal ST elevation, inferior leads Electronically Signed On 05-17-2024 12:44:35 PST by Collins Shirley Please click the below link to view image of tracing.
[2024-05-16 19:43] LABS: Hemoglobin 6.5 g/dL (12.2-16.2)
[2024-05-17] VITALS (11 sets, daily range): BP systolic 106–137; BP diastolic 57–72; PULSE 69–105; RESP 15–20; TEMP 98–99.4; O2SAT 92–97
[2024-05-17 07:11] LABS: Basophils # (auto) 0.1 10 ^3/uL (0-0.2); Basophils % (auto) 0.7 % (0.0-2.0); Eosinophils # (auto) 0 10 ^3/uL (0-0.8); Eosinophils % (auto) 0.1 % (0.0-7.0); Monocytes # (auto) 1.3 10 ^3/uL (0-1.3); Monocytes % (auto) 14.5 % (0.0-12.0)
[2024-05-17 07:14] LABS: Hematocrit 19.7 % (36.0-46.0); Lymphocytes # (auto) 2.2 10 ^3/uL (0.4-5.4); Mean Corpuscular Hemoglobin 34.4 pg (28.0-32.0); Mean Corpuscular Hgb Conc. 34.7 g/dL (32.0-36.0); Mean Corpuscular Volume 99.2 fL (80.0-100.0); Neutrophils # (auto) 5.5 10 ^3/uL (1.6-8.6); Neutrophils % (auto) 60.7 % (37.0-80.0); Nucleated Red Blood Cells % 8.3 %; Platelet Count (auto) 194 10^3/uL (140-450); Red Blood Cells 1.99 10^6/uL (4.0-5.20); Red Cell Distribution Width 19.1 % (11.8-14.3); White Blood Cell 9.1 10^3/uL (4.4-10.8)
[2024-05-17 07:22] LABS: Alanine Aminotransferase 22 U/L (7-40); Alkaline Phosphatase 79 U/L (46-116); Anion Gap 10 (5-15); BUN/Creatinine Ratio 24.1 (10.0-20.0); Calcium 10.2 mg/dL (8.7-10.4); Carbon Dioxide 23 mmol/L (20-31); Glucose 100 mg/dL (74-106); Sodium 143 mmol/L (136-145); Total Protein 7.1 g/dL (5.7-8.2)
[2024-05-17 07:24] LABS: Aspartate Aminotransferase 88 U/L (13-40); Bilirubin, Total 2.9 mg/dL (0.2-1.0); Blood Urea Nitrogen 28 mg/dL (9-23); Chloride 110 mmol/L (98-107); Potassium 2.7 mmol/L (3.5-5.1)
[2024-05-17 07:37] LABS: Hemoglobin 6.8 g/dL (12.2-16.2)
[2024-05-17 08:01] LABS: Bilirubin, Direct 1.2 mg/dL (<0.3)
--- NOTE | 2024-05-17 10:11 | DVHPN2 ---
Progress Note - Dictate Date Seen: May 17, 2024 Medical Necessity Reason Pt with a Central, PICC or Fol: No Subjective Patient comfortable. Denies any gross blood loss. Denies any pain. vital signs Vital Sign Date Time Temp Pulse Resp B/P (MAP) Pulse Ox O2 Delivery O2 Flow Rate FiO2 05/17/24 09:19 99.4 104 15 137/57 (83) 97 99.4 05/16/24 20:30 Nasal Cannula* 2 28 Total Intake and Output 05/16/24 05/16/24 05/17/24 15:00 23:00 07:00 Intake Total 200 ml 800 ml 0 ml Output Total 3 ml 300 ml Balance 200 ml 797 ml -300 ml medications Current Medications Medications Dose Ordered Sig/Jodi Route Start Time Stop Time Status Last Admin Dose Admin Nitroglycerin 0.4 mg Q5MINP PRN SL 05/15/24 16:15 Morphine Sulfate 2 mg Q30M PRN IV 05/15/24 16:15 Hydromorphone HCl 0.5 mg Q4HPRN PRN IV 05/15/24 17:45 05/17/24 03:20 0.5 MG Ondansetron HCl 4 mg Q4HPRN PRN IV 05/15/24 18:15 Pantoprazole Sodium 40 mg BID IV 05/16/24 10:00 05/16/24 22:00 40 MG Potassium Bicarbonate 50 meq DAILY PO 05/17/24 10:00 UNV objective General appearance: No acute distress Respiratory: Lungs clear to auscultation. No wheezing, crackles Cardiovascular: Sinus tachycardia, no murmurs. No edema Abdomen: Soft, nondistended, nontender, bowel sounds present MSK: Normal range of motion. Neuro: Alert, no neurological deficits Psych: Appropriate mood and affect. laboratory and microbiology Laboratory Tests 05/17/24 06:25 Test 05/17/24 06:25 Range/Units Serum Glucose 100 74-106 mg/dL Assessment/Plan 1. Anemia due to unspecified etiology 2. Acute Respiratory Failure 3. JUDY Plan: -Transfusion PRBC with goal hemoglobin greater than 7 -Delay in transfusion noted due to specialized blood requested given antibodies. Received 2U PRBC. Pending additional PRBC, being ordered from [facility]. [facility] noted they can only provide 2U at a time, hence the delay in additional transfusion. -Transfer back to telemetry as hemodynamically stable -Hematology/oncology consulted. Ruling out autoimmune hemoglobinemia. Labs pending. Direct Joseph negative, less likely AIHA. -Plan for bone marrow biopsy -Restarting IVF today -Pediatric tube for blood draws -Continue nasal cannula with goal oxygen >92%. -Avoid nephrotoxic medications. JUDY likely secondary to volume depletion. -Hepatitis C antibody positive. Patient notes history of transfusion as a teenager in the s. Denies history of drug abuse. GI consulted. -Full Code Plan discussed with: Patient BRENNAN AMSSEY DO May 17, 2024 10:11
[2024-05-17] MEDS: POTASSIUM EFFERVESENT TAB 25 MEQ PO SCH (11:50)
[2024-05-17] MEDS: SODIUM CHLORIDE 0.9% 1,000 ML IV SCH (15:30)
[2024-05-18] VITALS (13 sets, daily range): BP systolic 104–130; BP diastolic 50–95; PULSE 88–104; RESP 15–28; TEMP 98–99.4; O2SAT 94–99
[2024-05-18 06:18] LABS: Hemoglobin 7.9 g/dL (12.2-16.2); Platelet Count (auto) 180 10^3/uL (140-450)
[2024-05-18 06:19] LABS: Hematocrit 23.3 % (36.0-46.0); Mean Corpuscular Hemoglobin 31.7 pg (28.0-32.0); Mean Corpuscular Volume 93.4 fL (80.0-100.0); Red Cell Distribution Width 17.2 % (11.8-14.3); White Blood Cell 6.9 10^3/uL (4.4-10.8)
[2024-05-18 06:26] LABS: Band Neutrophils % (manual) 0; Basophils % (manual) 0 (0.0-2.0); Blast Cells 0; Eosinophils % (manual) 0 (0-7); Metamyelocytes % 0; Myelocytes % 0; Promyelocytes % 0; Reactive Lymphocytes 0
[2024-05-18 06:40] LABS: Alanine Aminotransferase 17 U/L (7-40); Alkaline Phosphatase 80 U/L (46-116); Anion Gap 10 (5-15); BUN/Creatinine Ratio 17.1 (10.0-20.0); Blood Urea Nitrogen 21 mg/dL (9-23); Calcium 9.9 mg/dL (8.7-10.4); Carbon Dioxide 23 mmol/L (20-31); Chloride 107 mmol/L (98-107); Glucose 90 mg/dL (74-106); Sodium 140 mmol/L (136-145)
[2024-05-18 06:42] LABS: Albumin 2.9 g/dL (3.2-4.8); Aspartate Aminotransferase 58 U/L (13-40); Bilirubin, Direct 1.2 mg/dL (<0.3); Bilirubin, Total 2.7 mg/dL (0.2-1.0); Total Protein 7.2 g/dL (5.7-8.2)
[2024-05-18 08:24] LABS: Lymphocytes % (manual) 31 (10.0-50.0); Monocytes % (manual) 10 (0-12)
[2024-05-18 08:28] LABS: Anisocytosis Slight
[2024-05-18 08:29] LABS: Hypochromia Slight; Macrocytosis Moderate; Target Cell FEW
[2024-05-18 08:30] LABS: Platelet Estimate Adequate
--- NOTE | 2024-05-18 12:00 | DVHPN2 ---
Progress Note - Dictate Date Seen: May 18, 2024 Medical Necessity Reason Pt with a Central, PICC or Fol: No Subjective Patient comfortable. Notes she is feeling stronger. vital signs Vital Sign Date Time Temp Pulse Resp B/P (MAP) Pulse Ox O2 Delivery O2 Flow Rate FiO2 05/18/24 11:46 99.4 94 15 116/69 99.4 05/18/24 09:18 99 05/17/24 20:30 Nasal Cannula* 2 28 Total Intake and Output 05/17/24 05/17/24 05/18/24 15:00 23:00 07:00 Intake Total 750 ml 1300 ml Output Total 650 ml 800 ml Balance 100 ml 500 ml medications Current Medications Medications Dose Ordered Sig/Jodi Route Start Time Stop Time Status Last Admin Dose Admin Nitroglycerin 0.4 mg Q5MINP PRN SL 05/15/24 16:15 Morphine Sulfate 2 mg Q30M PRN IV 05/15/24 16:15 Hydromorphone HCl 0.5 mg Q4HPRN PRN IV 05/15/24 17:45 05/17/24 03:20 0.5 MG Ondansetron HCl 4 mg Q4HPRN PRN IV 05/15/24 18:15 Pantoprazole Sodium 40 mg BID IV 05/16/24 10:00 05/17/24 22:18 40 MG Potassium Bicarbonate 50 meq DAILY PO 05/17/24 10:00 05/17/24 11:50 50 MEQ Sodium Chloride 1,000 ml @ 50 mls/hr Q20H IV 05/17/24 15:30 05/17/24 15:30 50 MLS/HR objective General appearance: No acute distress Respiratory: Lungs clear to auscultation. No wheezing, crackles Cardiovascular: Sinus tachycardia, no murmurs. No edema Abdomen: Soft, nondistended, nontender, bowel sounds present MSK: Normal range of motion. Neuro: Alert, no neurological deficits Psych: Appropriate mood and affect. laboratory and microbiology Laboratory Tests 05/18/24 04:35 Test 05/18/24 04:35 Range/Units Serum Glucose 90 74-106 mg/dL Assessment/Plan 1. Anemia due to unspecified etiology 2. Acute Respiratory Failure 3. JUDY Plan: -Transfusion PRBC with goal hemoglobin greater than 9 at request of IR to be able to perform bone marrow biopsy. -Delay in transfusion noted due to specialized blood requested given antibodies. Received 3U PRBC.Pending additional 1U PRBC. -Hematology/oncology consulted. Direct Joseph negative, less likely AIHA. -Plan for bone marrow biopsy -Continue IVF today -Pediatric tube for blood draws -Continue nasal cannula with goal oxygen >92%. -Avoid nephrotoxic medications. JUDY likely secondary to volume depletion, improving. -Hepatitis C antibody positive. Patient notes history of transfusion as a teenager in the [place]. Denies history of drug abuse. GI to follow up outpatient. -Full Code Plan discussed with: Patient BRENNAN MASSEY Keaton DO May 18, 2024 12:00
[2024-05-18 19:26] LABS: Hematocrit 29.2 % (36.0-46.0); Hemoglobin 9.9 g/dL (12.2-16.2)
[2024-05-19] VITALS (8 sets, daily range): BP systolic 104–126; BP diastolic 50–90; PULSE 83–105; RESP 17–20; TEMP 98.6–99.5; O2SAT 93–99
[2024-05-19 06:06] LABS: Hematocrit 27.6 % (36.0-46.0); Hemoglobin 9.3 g/dL (12.2-16.2); Mean Corpuscular Hemoglobin 30.5 pg (28.0-32.0); Mean Corpuscular Hgb Conc. 33.5 g/dL (32.0-36.0); Mean Corpuscular Volume 90.9 fL (80.0-100.0); Platelet Count (auto) 169 10^3/uL (140-450); Red Blood Cells 3.04 10^6/uL (4.0-5.20); Red Cell Distribution Width 16.8 % (11.8-14.3); White Blood Cell 6.6 10^3/uL (4.4-10.8)
[2024-05-19 06:15] LABS: Band Neutrophils % (manual) 0; Basophils % (manual) 0 (0.0-2.0); Eosinophils % (manual) 0 (0-7)
[2024-05-19 06:16] LABS: Blast Cells 0; Metamyelocytes % 0; Myelocytes % 0; Promyelocytes % 0; Reactive Lymphocytes 0
[2024-05-19 06:27] LABS: Alanine Aminotransferase 17 U/L (7-40); Alkaline Phosphatase 82 U/L (46-116); Anion Gap 5 (5-15); BUN/Creatinine Ratio 13.7 (10.0-20.0); Blood Urea Nitrogen 16 mg/dL (9-23); Calcium 9.6 mg/dL (8.7-10.4); Carbon Dioxide 26 mmol/L (20-31); Chloride 107 mmol/L (98-107); Glucose 90 mg/dL (74-106); Potassium 3.5 mmol/L (3.5-5.1); Sodium 138 mmol/L (136-145)
[2024-05-19 06:28] LABS: Total Protein 7.3 g/dL (5.7-8.2)
[2024-05-19 06:45] LABS: Albumin 2.9 g/dL (3.2-4.8); Aspartate Aminotransferase 44 U/L (13-40); Bilirubin, Direct 0.9 mg/dL (<0.3); Bilirubin, Total 1.9 mg/dL (0.2-1.0)
[2024-05-19 07:50] LABS: Anisocytosis Slight; Hypochromia Slight; Lymphocytes % (manual) 25 (10.0-50.0); Macrocytosis Slight; Monocytes % (manual) 25 (0-12)
[2024-05-19 07:51] LABS: Platelet Estimate Adequate; Target Cell FEW
--- NOTE | 2024-05-19 12:33 | DVHPN2 ---
Progress Note - Dictate Date Seen: May 19, 2024 Medical Necessity Reason Pt with a Central, PICC or Fol: No Subjective Patient comfortable. No new complaints. vital signs Vital Sign Date Time Temp Pulse Resp B/P (MAP) Pulse Ox O2 Delivery O2 Flow Rate FiO2 05/19/24 05:00 99.5 101 18 104/65 (78) 99 99.5 05/18/24 20:00 Nasal Cannula* 2 28 Total Intake and Output 05/18/24 05/18/24 05/19/24 15:00 23:00 07:00 Intake Total 200 ml 950 ml 550 ml Output Total 300 ml Balance 200 ml 950 ml 250 ml medications Current Medications Medications Dose Ordered Sig/Jodi Route Start Time Stop Time Status Last Admin Dose Admin Nitroglycerin 0.4 mg Q5MINP PRN SL 05/15/24 16:15 Morphine Sulfate 2 mg Q30M PRN IV 05/15/24 16:15 Hydromorphone HCl 0.5 mg Q4HPRN PRN IV 05/15/24 17:45 05/17/24 03:20 0.5 MG Ondansetron HCl 4 mg Q4HPRN PRN IV 05/15/24 18:15 Pantoprazole Sodium 40 mg BID IV 05/16/24 10:00 05/19/24 11:03 40 MG Potassium Bicarbonate 50 meq DAILY PO 05/17/24 10:00 05/19/24 11:04 50 MEQ Sodium Chloride 1,000 ml @ 50 mls/hr Q20H IV 05/17/24 15:30 05/19/24 11:05 50 MLS/HR objective General appearance: No acute distress Respiratory: Lungs clear to auscultation. No wheezing, crackles Cardiovascular: Sinus tachycardia, no murmurs. No edema Abdomen: Soft, nondistended, nontender, bowel sounds present MSK: Normal range of motion. Neuro: Alert, no neurological deficits Psych: Appropriate mood and affect. laboratory and microbiology Laboratory Tests 05/19/24 05:30 Test 05/19/24 05:30 Range/Units Serum Glucose 90 74-106 mg/dL Assessment/Plan 1. Anemia due to unspecified etiology 2. Acute Respiratory Failure 3. JUDY 4. Constipation Plan: -Transfusion PRBC with goal hemoglobin greater than 9 at request of IR to be able to perform bone marrow biopsy. -Received 4U PRBC since admission. -Hematology/oncology consulted. Direct Joseph negative, less likely AIHA. -Plan for bone marrow biopsy -Discontinue IVF today -Pediatric tube for blood draws -Continue nasal cannula with goal oxygen >92%. -Avoid nephrotoxic medications. JUDY likely secondary to volume depletion, improving. -Hepatitis C antibody positive. Patient notes history of transfusion as a teenager in the [place]. Denies history of drug abuse. GI to follow up outpatient. -SLE panel ordered -Miralax ordered for constipation -Full Code Plan discussed with: Patient, Daughter BRENNAN MASSEY DO May 19, 2024 12:33
[2024-05-19] MEDS: POLYETHYLENE GLYCOL 17 GM PWDR PO PRN (17:21)
[2024-05-20] VITALS (8 sets, daily range): BP systolic 95–132; BP diastolic 57–75; PULSE 93–136; RESP 16–20; TEMP 97.5–98.6; O2SAT 92–98
[2024-05-20 08:05] LABS: Alanine Aminotransferase 15 U/L (7-40); Alkaline Phosphatase 80 U/L (46-116); Anion Gap 7 (5-15); BUN/Creatinine Ratio 11.5 (10.0-20.0); Blood Urea Nitrogen 13 mg/dL (9-23); Calcium 9.8 mg/dL (8.7-10.4); Carbon Dioxide 24 mmol/L (20-31); Glucose 85 mg/dL (74-106); Hemoglobin 9.4 g/dL (12.2-16.2); Mean Corpuscular Hemoglobin 31.6 pg (28.0-32.0); Mean Corpuscular Hgb Conc. 33.6 g/dL (32.0-36.0); Platelet Count (auto) 151 10^3/uL (140-450); Potassium 3.8 mmol/L (3.5-5.1); Red Blood Cells 2.98 10^6/uL (4.0-5.20); Red Cell Distribution Width 17.3 % (11.8-14.3); Sodium 138 mmol/L (136-145); White Blood Cell 5.8 10^3/uL (4.4-10.8)
[2024-05-20 08:06] LABS: Aspartate Aminotransferase 36 U/L (13-40)
[2024-05-20 08:08] LABS: Total Protein 7.4 g/dL (5.7-8.2)
[2024-05-20] MEDS: MIDAZOLAM HCL 2MG/2ML 2ml VIAL (1mg/ml) IV ONE (08:15)
[2024-05-20] MEDS: fentaNYL CITRATE 100 MCG/2 ML VL IV ONE (08:15)
[2024-05-20 08:17] LABS: Albumin 2.9 g/dL (3.2-4.8); Bilirubin, Direct 0.9 mg/dL (<0.3); Bilirubin, Total 1.8 mg/dL (0.2-1.0); Chloride 107 mmol/L (98-107)
[2024-05-20 08:28] LABS: Band Neutrophils % (manual) 0; Basophils % (manual) 0 (0.0-2.0); Blast Cells 0; Metamyelocytes % 0; Myelocytes % 0; Promyelocytes % 0; Reactive Lymphocytes 0
[2024-05-20] MEDS: LIDOCAINE 2%HCL (LOCAL ANESTH.) INJ 10ml MDV ONE (08:45)
[2024-05-20 08:50] LABS: Eosinophils % (manual) 3 (0-7); Lymphocytes % (manual) 26 (10.0-50.0); Monocytes % (manual) 17 (0-12)
[2024-05-20 08:51] LABS: Anisocytosis Slight; Hypochromia Slight; Macrocytosis Slight; Target Cell FEW
[2024-05-20 08:52] LABS: Platelet Estimate Adequate
--- NOTE | 2024-05-20 09:42 | DVH ---
CT PELVIS WO CONTRAST, HISTORY: BONE MARROW BIOPSY COMPARISON: None PROCEDURE: Informed consent and time-out was performed before the procedure. Conscious sedation was p erformed by the interventional radiology nurse. The right posterior pelvic bone was marked, sterilize d, draped, and locally anesthetized using approximately 8 ml of 1% lidocaine. Axial CT images were us ed for localization. A 11 gauge [employer] Bone Biopsy kit was used to take 16 mL aspirate and 1 core sample. The biopsy needle was then removed. No immediate complications noted. SEDATION: Dr. Dhaval Jordan was personally responsible for the administration of moderate sedation during the procedure performed, including the use of an independent trained observer who had no other duties during the procedure. The drug[s] utilized were IV Fentanyl and Versed (see nursing log for details) . The total time of supervision by the attending physician was approximately 30 minutes. FINDINGS: Axial CT images demonstrates biopsy needle within the right posterior pelvic bone. IMPRESSION: CT-guided biopsy of the right posterior pelvic bone.
--- NOTE | 2024-05-20 09:43 | DVH ---
EXAM: CT CT GUIDED NEEDLEBIOPSY HISTORY: BONE MARROW BIOPSY COMPARISON: None PROCEDURE: Informed consent and time-out was performed before the procedure. Conscious sedation was p erformed by the interventional radiology nurse. The right posterior pelvic bone was marked, sterilize d, draped, and locally anesthetized using approximately 8 ml of 1% lidocaine. Axial CT images were us ed for localization. A 11 gauge [employer] Bone Biopsy kit was used to take 16 mL aspirate and 1 core sample. The biopsy needle was then removed. No immediate complications noted. SEDATION: Dr. Dhaval Jordan was personally responsible for the administration of moderate sedation during the procedure performed, including the use of an independent trained observer who had no other duties during the procedure. The drug[s] utilized were IV Fentanyl and Versed (see nursing log for details) . The total time of supervision by the attending physician was approximately 30 minutes. FINDINGS: Axial CT images demonstrates biopsy needle within the right posterior pelvic bone. IMPRESSION: CT-guided biopsy of the right posterior pelvic bone.
--- NOTE | 2024-05-20 13:18 | DVHPN2 ---
Progress Note - Dictate Date Seen: May 20, 2024 Medical Necessity Reason Pt with a Central, PICC or Fol: No Subjective Patient comfortable. No pain after bone marrow biopsy. vital signs Vital Sign Date Time Temp Pulse Resp B/P (MAP) Pulse Ox O2 Delivery O2 Flow Rate FiO2 05/20/24 09:00 97.5 101 18 132/75 (94) 94 97.5 05/20/24 08:00 Nasal Cannula* 2 28 Total Intake and Output 05/19/24 05/19/24 05/20/24 15:00 23:00 07:00 Intake Total 150 ml 240 ml 400 ml Output Total 1375 ml Balance 150 ml 240 ml -975 ml medications Current Medications Medications Dose Ordered Sig/Jodi Route Start Time Stop Time Status Last Admin Dose Admin Nitroglycerin 0.4 mg Q5MINP PRN SL 05/15/24 16:15 Morphine Sulfate 2 mg Q30M PRN IV 05/15/24 16:15 Hydromorphone HCl 0.5 mg Q4HPRN PRN IV 05/15/24 17:45 05/17/24 03:20 0.5 MG Ondansetron HCl 4 mg Q4HPRN PRN IV 05/15/24 18:15 Pantoprazole Sodium 40 mg BID IV 05/16/24 10:00 05/20/24 10:11 40 MG Polyethylene Glycol 17 gm DAILYPRN PRN PO 05/19/24 14:45 05/19/24 17:21 17 GM objective General appearance: No acute distress Respiratory: Lungs clear to auscultation. No wheezing, crackles Cardiovascular: Sinus tachycardia, no murmurs. No edema Abdomen: Soft, nondistended, nontender, bowel sounds present MSK: Normal range of motion. Neuro: Alert, no neurological deficits Psych: Appropriate mood and affect. laboratory and microbiology Laboratory Tests 05/20/24 06:42 Test 05/20/24 06:42 Range/Units Serum Glucose 85 74-106 mg/dL Assessment/Plan 1. Anemia due to unspecified etiology 2. Acute Respiratory Failure 3. JUDY-resolved 4. Constipation Plan: -Transfusion PRBC with goal hemoglobin greater than 9 at request of IR to be able to perform bone marrow biopsy. -Received 4U PRBC since admission. -Hematology/oncology consulted. Direct Joseph negative, less likely AIHA. Will repeat outpatient. -Bone marrow biopsy completed -Pediatric tube for blood draws -Continue nasal cannula with goal oxygen >92%. -Avoid nephrotoxic medications. JUDY likely secondary to volume depletion, improving. -Hepatitis C antibody positive. Patient notes history of transfusion as a teenager in the [place]. Denies history of drug abuse. GI to follow up outpatient. -SLE panel ordered -Miralax ordered for constipation -CT chest with contrast ordered to further evaluate respiratory failure -Full Code Dietary Evaluation Review Comments: 1.Continue diet regime Expected Outcomes/Goals: 1. Pt will consume >75% of estimated needs within 3-5 days Plan discussed with: Patient MANJEETANAYBRENNAN Pugh DO May 20, 2024 13:18
--- NOTE | 2024-05-20 13:31 | DVHDS2 ---
Discharge Summary Date of Admission May 15, 2024 at 16:14 Date of Discharge: May 22, 2024 Labs/Diagnostic Data: Laboratory Results Test 05/20/24 06:42 05/19/24 14:24 05/17/24 10:13 05/17/24 06:25 White Blood Count 5.8 10^3/uL (4.4-10.8) Red Blood Count 2.98 10^6/uL (4.0-5.20) Hemoglobin 9.4 g/dL (12.2-16.2) Hematocrit 28.0 % (36.0-46.0) Mean Corpuscular Volume 94.0 fL (80.0-100.0) Mean Corpuscular Hemoglobin 31.6 pg (28.0-32.0) Mean Corpuscular Hemoglobin Concent 33.6 g/dL (32.0-36.0) Red Cell Distribution Width 17.3 % (11.8-14.3) Platelet Count 151 10^3/uL (140-450) Mean Platelet Volume 9.5 fL (6.9-10.8) Neutrophils (%) (Auto) % (37.0-80.0) Lymphocytes (%) (Auto) % (10.0-50.0) Monocytes (%) (Auto) % (0.0-12.0) Basophils (%) (Auto) % (0.0-2.0) Neutrophils # (Auto) 10 ^3/uL (1.6-8.6) Lymphocytes # (Auto) 10 ^3/uL (0.4-5.4) Monocytes # (Auto) 10 ^3/uL (0-1.3) Differential Total Cells Counted 100.0 (100) Neutrophils % (Manual) 54 (37.0-80.0) Band Neutrophils % (Manual) 0 Lymphocytes % (Manual) 26 (10.0-50.0) Monocytes % (Manual) 17 (0-12) Eosinophils % (Manual) 3 (0-7) Basophils % (Manual) 0 (0.0-2.0) Metamyelocytes % (manual) 0 Myelocytes % (Manual) 0 Promyelocytes % (Manual) 0 Blast Cells % (Manual) 0 Nucleated Red Blood Cells 37.0 % Reactive Lymphocytes 0 Platelet Estimate Adequate Hypochromasia (manual) Slight Anisocytosis (manual) Slight Macrocytosis Slight Target Cells Few Schistocytes Few Sodium Level 138 mmol/L (136-145) Potassium Level 3.8 mmol/L (3.5-5.1) Chloride Level 107 mmol/L (98-107) Carbon Dioxide Level 24 mmol/L (20-31) Anion Gap 7 (5-15) Blood Urea Nitrogen 13 mg/dL (9-23) Creatinine 1.13 mg/dL (0.550-1.02) Glomerular Filtration Rate Calc 51 mL/min (>90) BUN/Creatinine Ratio 11.5 (10.0-20.0) Serum Glucose 85 mg/dL (74-106) Calcium Level 9.8 mg/dL (8.7-10.4) Total Bilirubin 1.8 mg/dL (0.2-1.0) Direct Bilirubin 0.9 mg/dL (<0.3) Aspartate Amino Transferase (AST) 36 U/L (13-40) Alanine Aminotransferase (ALT) 15 U/L (7-40) Alkaline Phosphatase 80 U/L (46-116) Total Protein 7.4 g/dL (5.7-8.2) Albumin 2.9 g/dL (3.2-4.8) Eosinophils (%) (Auto) 0.1 % (0.0-7.0) Eosinophils # (Auto) 0 10 ^3/uL (0-0.8) Basophils # (Auto) 0.1 10 ^3/uL (0-0.2) Monoscreen Negative Test 05/16/24 10:08 05/16/24 06:43 05/15/24 15:41 05/15/24 13:41 Haptoglobin <10 mg/dL (42-346) Fibrinogen 313 mg/dL (177-375) Lactic Acid Level 3.1 mmol/L (0.4-2.0) HIV (1&2) Antibody Negative (Negative) Large Platelets Few Reticulocyte Count (auto) 3.40 % (0.5-1.5) Iron Level 178 ug/dL (50-170) Total Iron Binding Capacity 196 ug/dL (250-425) Percent Iron Saturation 90.8 % (15-50) Ferritin 5744.0 ng/mL (10-291) Lactate Dehydrogenase 2355 U/L (120-246) Vitamin B12 Level 828 pg/mL (211-911) Folic Acid 13.74 ng/mL (>5.38) Hepatitis A IgM Antibody Negative Hepatitis B Surface Antigen Negative (Negative) Hepatitis B Core IgM Antibody Negative (Negative) Hepatitis C Antibody Reactive (Negative) Urine Color Dark-brown (Yellow) Urine Clarity Turbid (Clear) Urine pH 6.5 (5.0-9.0) Urine Specific [place] 1.011 (1.001-1.035) Urine Protein 2+ (Negative) Urine Ketones Negative (Negative) Urine Blood 3+ /uL (Negative) Urine Nitrite Negative (Negative) Urine Bilirubin Negative (Negative) Urine Urobilinogen Normal mg/dL (Negative) Urine Leukocyte Esterase Trace /uL (Negative) Urine RBC 4 /hpf (0 - 4) Urine WBC 32 /hpf (0 - 5) Urine WBC Clumps Present /hpf (None Seen) Urine Squamous Epithelial Cells None seen /hpf (<5) Urine Amorphous Crystals Few /hpf (None Seen) Urine Bacteria Few /hpf (None Seen) Urine Glucose Normal mg/dL (Normal) Sickle Cells Few Hemoglobin A1c < 4.0 % A1C (<5.7) Test 05/15/24 13:00 05/15/24 12:53 SARS-CoV-2 Antigen (Rapid) Negative (NEGATIVE) Prothrombin Time 12.4 sec (9.3-11.8) Prothrombin Time INR 1.18 (0.9-1.15) Other Laboratory Tests 05/20/24 06:42 Brief Hx & Hospital Course: Patient is a 74-year-old female with past medical history of sickle cell anemia who presented with complaints of generalized weakness. Patient was previously seen for similar complaint several weeks prior and transfused. Patient presented this admission with hemoglobin noted to be 4.4 on admission. Hematology/oncology was consulted. Patient was previously seen at [facility] for concerns of elevated total bilirubin with concerns of underlying cholecystitis. She ultimately underwent ERCP sphincterectomy with improvement in her symptoms. No pericholecystic fluid was noted at the time. Patient presented with LFTs on this admission with total bilirubin of 5, AST/ALT 162/30. This was higher than her prior hospitalization. In discussion with hematology/oncology, there was concern for autoimmune hemolytic anemia. Haptoglobin was low, LDH was elevated, and reticulocyte count was slightly elevated. However, direct Joseph test was negative which ruled out autoimmune hemolytic anemia. Her other lab findings were consistent with this presentation. It is unclear if there is is a false negative given prior blood transfusions. Patient was LFTs subsequently improved during her hospitalization and prior to discharge her total bilirubin was 1.5. Her AST/ALT had subsequently returned to normal. Patient is to have a repeat direct Joseph test done outpatient. She received a total of 4 units PRBCs which had to be special ordered from [place] due to antibodies noted. Her hemoglobin prior to discharge was 8.9. Pending labs at the time of discharge were hemoglobin electrophoresis. Lupus panel noted to be negative. Patient's hepatitis C antibody was noted to be positive. Patient notes that she had a blood transfusion in the 1960s as a teenager. She denied any headache or any IV drug use. This finding was discussed with GI which recommended outpatient follow-up. Of note, patient was also noted to require supplemental oxygen during her hospitalization. She was previously on oxygen prior to admission. Chest x-ray was noted to show diffuse bilateral interstitial prominence consistent with pulmonary vascular congestion. CT chest with contrast was ordered and showed bud in tree appearance, suggesting atypical infection. Patient was started on azithromycin 500 mg IV daily and transition to levofloxacin for additional 5 days. Patient also discharged on Medrol Dosepak and Tessalon Perles. TTE was ordered. Patient's overall presentation was attributed to sickle cell anemia crisis with infection causing hemolysis. Patient was cleared by hematology for discharge. Patient discharged in stable condition. Condition at Discharge: Good Final Diagnosis/Problems List Sickle Cell Crisis Secondary Diagnosis: Acute Respiratory Failure Atypical Pneumonia JUDY on CKD Discharge Disposition: Home with Health Services Discharge Statement: "Patient was advised to return to the ER or call 911 if any headaches, dizziness, shortness of breath, chest pain, abdominal pain, bleeding, fevers, or worsening of medical condition. Patient was counseled about treatment plan, medications, possible side effects, patientverbalized understanding. All questions were answered to the best of my ability. This discharge took greater then 30 minutes in planning, reviewing documentation, counseling the patient, and discussing with other team members." ASSESSMENT ASSESSMENT Assessment BRENNAN MASSEY DO May 20, 2024 13:31
[2024-05-20] MEDS: FUROSEMIDE 40 MG/4 ML VIAL IV ONE (14:15)
[2024-05-20] MEDS: IOHEXOL 300 MG/ML 100ML BOTTLE IJ ONE (15:41)
--- NOTE | 2024-05-20 16:35 | DVH ---
Procedure: CT CHEST WITH CONTRAST Reason for study/Clinical History: Persistent cough. Comparison Study: None available at time of dictation. Exam Date: 05/20/2024 03:48 PM Radiation Dose Information: CT Dose: CTDI volume is 4.56 mGy. Dose-length product is 184.67 mGy*cm TECHNIQUE: After the uneventful administration of intravenous contrast intravenously, CT imaging was performed through the chest. Coronal and sagittal reformations were performed by the technologist. 10 0 cc of Omnipaque 300 contrast was injected intravenously. All CT scans at this medical facility are performed using dose modulation techniques as appropriate t o a performed exam including the following:Automated exposure control was utilized; adjustment of the MA and/or KV according to patient size; and use of iterative reconstruction technique. FINDINGS: Lungs/pleura: There are patchy tree-in-bud nodular and ground-glass opacities in the posterior right upper lobe. There is curvilinear scarring versus atelectasis in the bilateral lower lobes and to a le sser degree in the right middle lobe. There is no pleural effusion or pneumothorax. The central airw ays are clear. Aorta and Vasculature: Normal caliber of thoracic aorta. Lymph Nodes: No pathologic intrathoracic lymph nodes. Mediastinum: Heart size is normal. There is no pericardial effusion. Upper abdomen: There is diffuse calcification of the spleen. There are multiple calcified gallstones filling the gallbladder. Note is made of intrahepatic and extrahepatic biliary pneumobilia.. Musculoskeletal: No acute osseous abnormality. IMPRESSION: 1. Patchy tree-in-bud nodular and ground-glass opacities in the posterior right upper lobe may repres ent developing airspace disease including atypical infections. Clinical correlation is recommended. 2. There is curvilinear scarring versus atelectasis in the bilateral lower lobes and to a lesser degr ee in the right middle lobe. 3. There are multiple calcified gallstones filling the gallbladder. Note is made of intrahepatic and extrahepatic biliary pneumobilia. 4. There is diffuse calcification of the spleen. HS:Y
--- NOTE | 2024-05-20 21:38 | DVHINCON2 ---
Date of service: May 20, 2024 Referring Physician Rajendra Reason for Consultation R/O CHF History of Present Illness This is a 74 year old female with a PMH of sickle cell disease takes hydroxyurea at home as well as gallbladder disease who presented to the ED on 05/15 with complaints of generalized weakness. According to the family, the patient was seen by her primary care doctor, she went to the restroom and became very weak. They also noticed that the patient had blood in the toilet which they thought was hematuria. Labs returned with a hgb of 4.4 and lactic acidemia in the setting of anemia and volume depletion. Patient received 3 units PRBC transfusion.Patient was admitted to the hospital. I am asked to consult on this patient. Family History: Diabetes mellitus Allergies: Coded Allergies: Penicillins (Verified Allergy, Unknown, 04/16/24) Sulfa Antibiotics (Verified Allergy, Unknown, 04/16/24) Home Meds No Active Prescriptions or Reported Meds Review of Systems Constitutional: reports: weakness; denies: chills, diaphoresis, fatigue, fever, malaise, sweats, others EENTM: denies: blurred vision, double vision, ear bleeding, ear discharge, ear drainage, ear pain, ear ringing, eye pain, eye redness, hearing loss, mouth pain, mouth swelling, nasal discharge, nose bleeding, nose congestion, nose pain, photophobia, tearing, throat pain, throat swelling, voice changes, others Respiratory: denies: cough, hemoptysis, orthopnea, SOB at rest, shortness of breath, SOB with excertion, stridor, wheezing, others Cardiovascular: denies: chest pain, dizzy spells, diaphoresis, Dyspnea on exertion, edema, irregular heart beat, left arm pain, lightheadedness, palpitations, PND, syncope, others Gastrointestinal: denies: abdomen distended, abdominal pain, blood streaked bowels, constipated, diarrhea, dysphagia, difficulty swallowing, hematemesis, melena, nausea, poor appetite, poor fluid intake, rectal bleeding, rectal pain, vomiting, others Genitourinary: reports: hematuria; denies: abnormal vagina bleeding, burning, dyspareunia, dysuria, flank pain, frequency, incontinence, pain, , vagina discharge, urgency, others Neurological: denies: dizziness, fainting, headache, left sided numbness, left sided weakness, numbness, paresthesia, pre-existing deficit, right sided numbness, right sided weakness, seizure, speech problems, tingling, tremors, weakness, others Musculoskeletal: denies: back pain, gout, joint pain, joint swelling, muscle pain, muscle stiffness, neck pain, others Integumetry: denies: bruises, change in color, change in hair/nails, dryness, laceration, lesions, lumps, rash, wounds, others Allergic/Immunocompromised: denies: Difficulty Healing, Frequent Infections, Hives, Itching, others Hematologic/Lymphatic: denies: anemia, blood clots, easy bleeding, easy bruising, swollen glands, others Endocrine: denies: excessive hunger, excessive sweating, excessive thirst, excessive urination, flushing, intolerance to cold, intolerance to heat, unexplained weight gain, unexplained weight loss, others Psychiatric: denies: anxiety, bipolar disorder, depression, hopeless, panic disorder, schizophrenia, sleepless, suicidal, others Vital Signs Vital Signs Date Time Temp Pulse Resp B/P (MAP) Pulse Ox O2 Delivery O2 Flow Rate FiO2 05/20/24 17:00 98.0 127 20 95/57 (70) 96 98.0 05/20/24 08:00 Nasal Cannula* 2 28 Physical Exam GENERAL: Awake, alert, oriented. LUNGS: Clear. CARDIOVASCULAR: Sinus tachycardia, no murmurs. No edema. ABDOMEN: Soft. Labs/Diagnostic Data Labs Test 05/20/24 06:42 05/19/24 14:24 05/17/24 10:13 05/17/24 06:25 Range/Units White Blood Count 5.8 4.4-10.8 10^3/uL Red Blood Count 2.98 L 4.0-5.20 10^6/uL Hemoglobin 9.4 L 12.2-16.2 g/dL Hematocrit 28.0 L 36.0-46.0 % Mean Corpuscular Volume 94.0 80.0-100.0 fL Mean Corpuscular Hemoglobin 31.6 28.0-32.0 pg Mean Corpuscular Hemoglobin Concent 33.6 32.0-36.0 g/dL Red Cell Distribution Width 17.3 H 11.8-14.3 % Platelet Count 151 140-450 10^3/uL Mean Platelet Volume 9.5 6.9-10.8 fL Neutrophils (%) (Auto) 37.0-80.0 % Lymphocytes (%) (Auto) 10.0-50.0 % Monocytes (%) (Auto) 0.0-12.0 % Basophils (%) (Auto) 0.0-2.0 % Neutrophils # (Auto) 1.6-8.6 10 ^3/uL Lymphocytes # (Auto) 0.4-5.4 10 ^3/uL Monocytes # (Auto) 0-1.3 10 ^3/uL Differential Total Cells Counted 100.0 100 Neutrophils % (Manual) 54 37.0-80.0 Band Neutrophils % (Manual) 0 Lymphocytes % (Manual) 26 10.0-50.0 Monocytes % (Manual) 17 H 0-12 Eosinophils % (Manual) 3 0-7 Basophils % (Manual) 0 0.0-2.0 Metamyelocytes % (manual) 0 Myelocytes % (Manual) 0 Promyelocytes % (Manual) 0 Blast Cells % (Manual) 0 Nucleated Red Blood Cells 37.0 % Reactive Lymphocytes 0 Platelet Estimate Adequate Hypochromasia (manual) Slight Anisocytosis (manual) Slight Macrocytosis Slight Target Cells Few Schistocytes Few Sodium Level 138 136-145 mmol/L Potassium Level 3.8 3.5-5.1 mmol/L Chloride Level 107 98-107 mmol/L Carbon Dioxide Level 24 20-31 mmol/L Anion Gap 7 5-15 Blood Urea Nitrogen 13 9-23 mg/dL Creatinine 1.13 H 0.550-1.02 mg/dL Glomerular Filtration Rate Calc 51 >90 mL/min BUN/Creatinine Ratio 11.5 10.0-20.0 Serum Glucose 85 74-106 mg/dL Calcium Level 9.8 8.7-10.4 mg/dL Total Bilirubin 1.8 H 0.2-1.0 mg/dL Direct Bilirubin 0.9 H <0.3 mg/dL Aspartate Amino Transferase (AST) 36 13-40 U/L Alanine Aminotransferase (ALT) 15 7-40 U/L Alkaline Phosphatase 80 46-116 U/L Total Protein 7.4 5.7-8.2 g/dL Albumin 2.9 L 3.2-4.8 g/dL Eosinophils (%) (Auto) 0.1 0.0-7.0 % Eosinophils # (Auto) 0 0-0.8 10 ^3/uL Basophils # (Auto) 0.1 0-0.2 10 ^3/uL Monoscreen Negative Test 05/16/24 10:08 05/16/24 06:43 05/15/24 15:41 05/15/24 13:41 Range/Units Haptoglobin <10 L 42-346 mg/dL Fibrinogen 313 177-375 mg/dL Lactic Acid Level 3.1 *H 0.4-2.0 mmol/L HIV (1&2) Antibody Negative Negative Large Platelets Few Reticulocyte Count (auto) 3.40 H 0.5-1.5 % Iron Level 178 H 50-170 ug/dL Total Iron Binding Capacity 196 L 250-425 ug/dL Percent Iron Saturation 90.8 H 15-50 % Ferritin 5744.0 H 10-291 ng/mL Lactate Dehydrogenase 2355 H 120-246 U/L Vitamin B12 Level 828 211-911 pg/mL Folic Acid 13.74 >5.38 ng/mL Hepatitis A IgM Antibody Negative Hepatitis B Surface Antigen Negative Negative Hepatitis B Core IgM Antibody Negative Negative Hepatitis C Antibody Reactive *A Negative Urine Color Dark-brown Yellow Urine Clarity Turbid H Clear Urine pH 6.5 5.0-9.0 Urine Specific [place] 1.011 1.001-1.035 Urine Protein 2+ H Negative Urine Ketones Negative Negative Urine Blood 3+ H Negative /uL Urine Nitrite Negative Negative Urine Bilirubin Negative Negative Urine Urobilinogen Normal Negative mg/dL Urine Leukocyte Esterase Trace Negative /uL Urine RBC 4 0 - 4 /hpf Urine WBC 32 0 - 5 /hpf Urine WBC Clumps Present None Seen /hpf Urine Squamous Epithelial Cells None seen <5 /hpf Urine Amorphous Crystals Few None Seen /hpf Urine Bacteria Few H None Seen /hpf Urine Glucose Normal Normal mg/dL Sickle Cells Few Hemoglobin A1c < 4.0 <5.7 % A1C Test 05/15/24 13:00 05/15/24 12:53 Range/Units SARS-CoV-2 Antigen (Rapid) Negative NEGATIVE Prothrombin Time 12.4 H 9.3-11.8 sec Prothrombin Time INR 1.18 H 0.9-1.15 Microbiology Date/Time Source Procedure Growth Status 05/17/24 03:15 Nose MRSA Screen - Final Complete 05/15/24 12:53 Blood Blood Culture - Final NO GROWTH AFTER 5 DAYS OF INCUBATION. Complete Assessment Anemia due to unspecified etiology. Acute Respiratory Failure. JUDY. Constipation. Plan/Recommendation I agree with your ongoing assessment and care of plan. Echocardiogram. Dilaudid for pain management. GI prophylactics. Nitro SL. Additional plan as per the hospital course. A total of 45 minutes was spent reviewing the patient record, examining the patient, making a diagnostic and therapeutic plan, discussing this plan with medical personnel, following up on diagnostic studies and following the patient for clinical stability excluding any and all procedures. At least 50% of this time was spent in direct, [id number] contact. Plan discussed with: Patient SAYDA CLEMENTE MD May 20, 2024 21:38
[2024-05-20] MEDS: AZITHROMYCIN 500MG/ 250ML 250 ML IV SCH (23:26)
[2024-05-20] MEDS: ENOXAPARIN SOD 40 MG/0.4 ML SYRINGE SC SCH (23:26)
[2024-05-20] MEDS ORDERED: HYDROcodone-ACET 5/325MG TAB PO PRN (23:45)
[2024-05-21] VITALS (16 sets, daily range): BP systolic 94–147; BP diastolic 53–80; PULSE 92–137; RESP 12–18; TEMP 98–98.7; O2SAT 93–100
[2024-05-21] MEDS ORDERED: HYDROcodone-ACET 5/325MG TAB PO PRN
--- NOTE | 2024-05-21 00:03 | DVHINCON2 ---
Date of service: May 20, 2024 Family History: Diabetes mellitus Allergies: Coded Allergies: Penicillins (Verified Allergy, Unknown, 04/16/24) Sulfa Antibiotics (Verified Allergy, Unknown, 04/16/24) Home Meds Active Scripts Ipratropium-Albuterol (Ipratropium [place]/Albut) 1 Daphne Daphne, 1 DAPHNE IN Q6HP PRN for 30 Days, #90 ML 1 Refill Prov:BRENNAN MASSEY DO 05/22/24 Benzonatate (Benzonatate) 100 Mg Cap, 1 CAP PO TID PRN, #30 CAP 0 Refills Take as needed for cough. Prov:BRENNAN MASSEY DO 05/21/24 Methylprednisolone (Medrol Dosepak) 4 Mg Yan, 4 MG PO UD, #21 TAB 0 Refills UAD Prov:BRENNAN MASSEY DO 05/21/24 Levofloxacin Hemihydrate (LEVOFLOXACIN) 500 Mg Tab, 500 MG PO DAILY for 5 Days, #5 TAB 0 Refills Prov:BRENNAN MASSEY DO 05/21/24 Current Medications Current Medications Medications (Trade) Dose Ordered Sig/Jodi Route PRN Reason Start Time Stop Time Status Last Admin Enoxaparin Sodium (Lovenox) 40 mg DAILY SC 05/20/24 23:15 05/20/24 23:26 Azithromycin 250 ml @ 125 mls/hr DAILY IV 05/20/24 23:15 05/20/24 23:26 Acetaminophen/ Hydrocodone Bitart ([place] 5/325MG Tab) 1 tab Q4HPRN PRN PO MODERATE PAIN (4-6 PAIN SCALE) 05/20/24 23:45 Cancel Acetaminophen/ Hydrocodone Bitart ([place] 5/325MG Tab) 1 tab Q8HPRN PRN PO MODERATE PAIN (4-6 PAIN SCALE) 05/21/24 00:00 05/20/24 23:53 DC Acetaminophen/ Hydrocodone Bitart ([place] 5/325MG Tab) 1 tab Q8HPRN PRN PO MODERATE PAIN (4-6 PAIN SCALE) 05/21/24 00:00 UNV Vital Signs Vital Signs Date Time Temp Pulse Resp B/P (MAP) Pulse Ox O2 Delivery O2 Flow Rate FiO2 05/20/24 21:00 98.3 113 18 100/63 (75) 98 98.3 05/20/24 20:00 Nasal Cannula* 2 28 Labs/Diagnostic Data Labs Test 05/20/24 06:42 05/19/24 14:24 05/17/24 10:13 05/17/24 06:25 Range/Units White Blood Count 5.8 4.4-10.8 10^3/uL Red Blood Count 2.98 L 4.0-5.20 10^6/uL Hemoglobin 9.4 L 12.2-16.2 g/dL Hematocrit 28.0 L 36.0-46.0 % Mean Corpuscular Volume 94.0 80.0-100.0 fL Mean Corpuscular Hemoglobin 31.6 28.0-32.0 pg Mean Corpuscular Hemoglobin Concent 33.6 32.0-36.0 g/dL Red Cell Distribution Width 17.3 H 11.8-14.3 % Platelet Count 151 140-450 10^3/uL Mean Platelet Volume 9.5 6.9-10.8 fL Neutrophils (%) (Auto) 37.0-80.0 % Lymphocytes (%) (Auto) 10.0-50.0 % Monocytes (%) (Auto) 0.0-12.0 % Basophils (%) (Auto) 0.0-2.0 % Neutrophils # (Auto) 1.6-8.6 10 ^3/uL Lymphocytes # (Auto) 0.4-5.4 10 ^3/uL Monocytes # (Auto) 0-1.3 10 ^3/uL Differential Total Cells Counted 100.0 100 Neutrophils % (Manual) 54 37.0-80.0 Band Neutrophils % (Manual) 0 Lymphocytes % (Manual) 26 10.0-50.0 Monocytes % (Manual) 17 H 0-12 Eosinophils % (Manual) 3 0-7 Basophils % (Manual) 0 0.0-2.0 Metamyelocytes % (manual) 0 Myelocytes % (Manual) 0 Promyelocytes % (Manual) 0 Blast Cells % (Manual) 0 Nucleated Red Blood Cells 37.0 % Reactive Lymphocytes 0 Platelet Estimate Adequate Hypochromasia (manual) Slight Anisocytosis (manual) Slight Macrocytosis Slight Target Cells Few Schistocytes Few Sodium Level 138 136-145 mmol/L Potassium Level 3.8 3.5-5.1 mmol/L Chloride Level 107 98-107 mmol/L Carbon Dioxide Level 24 20-31 mmol/L Anion Gap 7 5-15 Blood Urea Nitrogen 13 9-23 mg/dL Creatinine 1.13 H 0.550-1.02 mg/dL Glomerular Filtration Rate Calc 51 >90 mL/min BUN/Creatinine Ratio 11.5 10.0-20.0 Serum Glucose 85 74-106 mg/dL Calcium Level 9.8 8.7-10.4 mg/dL Total Bilirubin 1.8 H 0.2-1.0 mg/dL Direct Bilirubin 0.9 H <0.3 mg/dL Aspartate Amino Transferase (AST) 36 13-40 U/L Alanine Aminotransferase (ALT) 15 7-40 U/L Alkaline Phosphatase 80 46-116 U/L Total Protein 7.4 5.7-8.2 g/dL Albumin 2.9 L 3.2-4.8 g/dL Eosinophils (%) (Auto) 0.1 0.0-7.0 % Eosinophils # (Auto) 0 0-0.8 10 ^3/uL Basophils # (Auto) 0.1 0-0.2 10 ^3/uL Monoscreen Negative Test 05/16/24 10:08 05/16/24 06:43 05/15/24 15:41 05/15/24 13:41 Range/Units Haptoglobin <10 L 42-346 mg/dL Fibrinogen 313 177-375 mg/dL Lactic Acid Level 3.1 *H 0.4-2.0 mmol/L HIV (1&2) Antibody Negative Negative Large Platelets Few Reticulocyte Count (auto) 3.40 H 0.5-1.5 % Iron Level 178 H 50-170 ug/dL Total Iron Binding Capacity 196 L 250-425 ug/dL Percent Iron Saturation 90.8 H 15-50 % Ferritin 5744.0 H 10-291 ng/mL Lactate Dehydrogenase 2355 H 120-246 U/L Vitamin B12 Level 828 211-911 pg/mL Folic Acid 13.74 >5.38 ng/mL Hepatitis A IgM Antibody Negative Hepatitis B Surface Antigen Negative Negative Hepatitis B Core IgM Antibody Negative Negative Hepatitis C Antibody Reactive *A Negative Urine Color Dark-brown Yellow Urine Clarity Turbid H Clear Urine pH 6.5 5.0-9.0 Urine Specific [place] 1.011 1.001-1.035 Urine Protein 2+ H Negative Urine Ketones Negative Negative Urine Blood 3+ H Negative /uL Urine Nitrite Negative Negative Urine Bilirubin Negative Negative Urine Urobilinogen Normal Negative mg/dL Urine Leukocyte Esterase Trace Negative /uL Urine RBC 4 0 - 4 /hpf Urine WBC 32 0 - 5 /hpf Urine WBC Clumps Present None Seen /hpf Urine Squamous Epithelial Cells None seen <5 /hpf Urine Amorphous Crystals Few None Seen /hpf Urine Bacteria Few H None Seen /hpf Urine Glucose Normal Normal mg/dL Sickle Cells Few Hemoglobin A1c < 4.0 <5.7 % A1C Test 05/15/24 13:00 05/15/24 12:53 Range/Units SARS-CoV-2 Antigen (Rapid) Negative NEGATIVE Prothrombin Time 12.4 H 9.3-11.8 sec Prothrombin Time INR 1.18 H 0.9-1.15 Microbiology Date/Time Source Procedure Growth Status 05/17/24 03:15 Nose MRSA Screen - Final Complete 05/15/24 12:53 Blood Blood Culture - Final NO GROWTH AFTER 5 DAYS OF INCUBATION. Complete Plan/Recommendation Problems(with codes): (1) Pneumonia (2) Acute chest syndrome due to sickle cell crisis (3) Symptomatic anemia (4) Gallstones (5) Sickle cell anemia (6) Elevated lactic acid level (7) Sickle cell crisis (8) Acute gallstone pancreatitis (9) Common bile duct dilatation Problem List/Assessment/Plan ASSESSMENT AND PLAN: ID Problem List: - Sickle cell anemia - Acute chest syndrome - Pneumonia - Hemolytic anemia - Elevated bilirubin - Status post ERCP with sphincterotomy Assessment This is a 34 y.o. female, has a past medical history of sickle cell anemia, who presents with nausea, vomiting, abdominal pain, and jaundice. Patient was recently hospitalized at [facility] for elevated bilirubin and underwent ERCP with sphincterotomy, leading to improvement in her symptoms. She now presents with total bilirubin of 4.4 on admission, hemoglobin of 3.7, and signs consistent with hemolytic anemia. Chest X-ray reveals bilateral interstitial prominence with hyperinflation of the lungs. She is hypoxic, initially requiring a non-rebreather mask at 12 liters, now on 2 liters nasal cannula. Lab findings show indirect hyperbilirubinemia with a low haptoglobin level (<10), elevated AST (162), normal ALT (30), and lactate of 3.1. Given her history and current findings, she is experiencing a sickle cell crisis with acute chest syndrome and hemolytic anemia. Plan: - Continue ceftriaxone and azithromycin for community-acquired pneumonia. - Treat sickle cell crisis with hydration, pain control, and blood transfusions as tolerated. - Monitor oxygen saturation; if hypoxia persists, obtain sputum cultures and Legionella urinary antigen. - Consider future cholecystectomy if she has recurrent episodes, as gallbladder appears to be full. - Monitor labs, including complete blood count and liver function tests. - Encourage smoking cessation, including marijuana use. Isolation Precautions: standard Assessment and plan was discussed with the patient as written above Plan is subject to change pending incorporation of new incoming information/diagnostics. Updates may be added as addendum at the bottom (OR TOP) of this note Thank you for interesting consult. We will continue to follow. Please contact us for any questions or concerns. Sharif Moore M.D. [facility] Ph: ? History: The patient's chart and medications were reviewed in detail and the patient was seen and examined. History obtained from: patient Yadira Powell is a 34 y.o. female, has a past medical history of sickle cell anemia, who presents with nausea, vomiting, abdominal pain, and jaundice. She reports that her symptoms have been gradually improving. She had significant epigastric pain upon admission but denies current abdominal pain, nausea, or vomiting. She has not had an episode of sickle cell crisis in over 14 years. Previous crises were associated with pneumonias. She denies smoking cigarettes or alcohol use but does smoke marijuana. She is allergic to penicillin and sulfa drugs. Review of Systems: A complete 10 system review of systems was completed and negative except as noted in the HPI or here. ROS: - CONSTITUTIONAL: Denies weight loss, fever, and chills. - HEENT: Denies changes in vision and hearing. - RESPIRATORY: Denies shortness of breath and cough. - CV: Denies palpitations and chest pain. - GI: Reports nausea, vomiting, and abdominal pain on admission; symptoms improving. - : Denies dysuria and urinary frequency. - MSK: Denies myalgia and joint pain. - SKIN: Denies rash and pruritus. - NEUROLOGICAL: Denies headache and syncope. - PSYCHIATRIC: Denies recent changes in mood. Denies anxiety and depression. Past Medical History: Diagnosis Date Sickle cell anemia Past Surgical History: Recent ERCP with sphincterotomy for choledocholithiasis. Home Medications: Medication list not provided. Allergies: Penicillin Sulfa drugs Family History: Family history not provided. Social History: Socioeconomic History Marital status: Not provided Number of children: Not provided Years of education: Not provided Highest education level: Not provided Occupational History Not provided Tobacco Use Smoking status: Never smoker Smokeless tobacco: Never Vaping Use Vaping status: Never used Substance and Sexual Activity Alcohol use: Denies alcohol use Drug use: Smokes marijuana Sexual activity: Not provided Other Topics Concern Not provided Social Determinants of Health Not provided Objective: Vital Signs on Arrival: Temp: 99.5 F BP: 102/57 Pulse: Not provided Resp: 16 SpO2: 98% on non- rebreather mask at 12L Most Recent Vital Signs: Temp: Not provided BP: Not provided Pulse: Not provided Resp: 16 SpO2: 98% on 2L/min nasal cannula Admission Weight: Not provided Physical Exam: General: NAD Neck: Supple. No masses. HEENT: PERRL. Normal lids and conjunctiva. Moist mucous membranes. Oropharynx without lesions, exudates or excessive erythema. Normal appearance of the external aspects of the nose and ears. Heart: Regular rhythm, normal rate. No murmur. No lower extremity edema. Lungs: Normal respiratory effort. Clear to auscultation bilaterally. No wheezes. No crackles. Abdomen: Soft. Non-tender. Non-distended. No masses or abdominal hernia. Msk: No digital cyanosis. Normal strength and tone in all 4 limbs Skin: Warm and dry, no rashes. Neuro: Alert. No facial droop or slurred speech. Extra-ocular movements intact. Sensation intact to soft touch in all 4 limbs. Psych: Appropriate mood. Full affect. Oriented to person, place, time, and situation. Lines: Active Lines Peripheral IV Line details not provided. Diagnostic Studies: Available diagnostic studies were reviewed personally. Significant relevant results and findings are outlined below or addressed in the Assessment and Plan above. Pertinent Imaging: Recent Results (from the past 72 hour(s)) Chest X-ray: - Impression IMPRESSION: - Bilateral interstitial prominence with hyperinflation of the lungs. Renal Ultrasound: - Impression IMPRESSION: - Chronic renal disease with trace right hydronephrosis. Labs: - Hemoglobin: 3.7 WBC: 9.7 - Reticulocyte count: 3.4% - Haptoglobin: less than 10 - Total bilirubin: 5 (on admission), direct bilirubin: 1.5 AST: 162, ALT: 30 - Lactic acid: 3.1 - BUN: 14, Creatinine: 0.9 - Antibody screen: Negative - HIV, mononucleosis tests: Negative Plan discussed with: Patient SHARIF MOORE MD May 21, 2024 00:03
[2024-05-21] MEDS: HYDROcodone-ACET 5/325MG TAB PO PRN (00:18)
[2024-05-21 07:06] LABS: Thyroid Peroxidase (TPO) Ab 14 IU/mL (0-34)
[2024-05-21 07:19] LABS: Hematocrit 27.5 % (36.0-46.0); Hemoglobin 9.3 g/dL (12.2-16.2); Mean Corpuscular Hemoglobin 31.3 pg (28.0-32.0); Mean Corpuscular Hgb Conc. 33.7 g/dL (32.0-36.0); Mean Corpuscular Volume 93.1 fL (80.0-100.0); Platelet Count (auto) 122 10^3/uL (140-450); Red Blood Cells 2.95 10^6/uL (4.0-5.20); Red Cell Distribution Width 18.7 % (11.8-14.3); White Blood Cell 5.6 10^3/uL (4.4-10.8)
[2024-05-21 07:27] LABS: Alanine Aminotransferase 19 U/L (7-40); Alkaline Phosphatase 85 U/L (46-116); Anion Gap 9 (5-15); BUN/Creatinine Ratio 12.1 (10.0-20.0); Blood Urea Nitrogen 19 mg/dL (9-23); Calcium 9.4 mg/dL (8.7-10.4); Carbon Dioxide 24 mmol/L (20-31); Chloride 101 mmol/L (98-107); Glucose 86 mg/dL (74-106); Potassium 3.7 mmol/L (3.5-5.1)
[2024-05-21 07:28] LABS: Aspartate Aminotransferase 31 U/L (13-40)
[2024-05-21 07:29] LABS: Total Protein 7.2 g/dL (5.7-8.2)
[2024-05-21 07:42] LABS: Sodium 134 mmol/L (136-145)
[2024-05-21 07:43] LABS: Albumin 2.8 g/dL (3.2-4.8); Bilirubin, Direct 0.9 mg/dL (<0.3); Bilirubin, Total 1.9 mg/dL (0.2-1.0)
[2024-05-21 07:59] LABS: Band Neutrophils % (manual) 0; Basophils % (manual) 0 (0.0-2.0); Blast Cells 0; Metamyelocytes % 0; Myelocytes % 0; Promyelocytes % 0; Reactive Lymphocytes 0
[2024-05-21 08:06] LABS: Complement C3 117 mg/dL (82-167); Rheumatoid Arthritis Factor <10.0 IU/mL (<14.0)
[2024-05-21] MEDS ORDERED: levoFLOXacin 250 MG TAB PO SCH (10:00)
[2024-05-21 10:02] LABS: Eosinophils % (manual) 3 (0-7); Lymphocytes % (manual) 13 (10.0-50.0); Monocytes % (manual) 14 (0-12); Platelet Estimate Decreased
[2024-05-21] MEDS: IPRATROPIUM BROM 0.5 MG/2.5ML INH SOL NEB SCH (10:19)
[2024-05-21] MEDS: methylPREDNISolone SOD SUCC 40 MG/ML VL IV SCH (10:54)
[2024-05-21] MEDS: levoFLOXacin 250 MG TAB PO SCH (10:55)
[2024-05-21] MEDS: ONDANSETRON HCL 4 MG/2 ML VIAL IV PRN (12:13)
--- NOTE | 2024-05-21 13:44 | DVHPN2 ---
Progress Note - Dictate Date Seen: May 21, 2024 Medical Necessity Reason Pt with a Central, PICC or Fol: No Subjective Patient comfortable. Notes that breathing improved. vital signs Vital Sign Date Time Temp Pulse Resp B/P (MAP) Pulse Ox O2 Delivery O2 Flow Rate FiO2 05/21/24 13:35 98.7 109 15 124/53 (76) 95 98.7 05/21/24 10:19 Nasal Cannula 2.0 05/21/24 10:19 28 Total Intake and Output 05/20/24 05/20/24 05/21/24 15:00 23:00 07:00 Intake Total 500 ml 300 ml Output Total 250 ml Balance -250 ml 500 ml 300 ml medications Current Medications Medications Dose Ordered Sig/Jodi Route Start Time Stop Time Status Last Admin Dose Admin Nitroglycerin 0.4 mg Q5MINP PRN SL 05/15/24 16:15 Morphine Sulfate 2 mg Q30M PRN IV 05/15/24 16:15 Hydromorphone HCl 0.5 mg Q4HPRN PRN IV 05/15/24 17:45 05/21/24 12:14 0.5 MG Ondansetron HCl 4 mg Q4HPRN PRN IV 05/15/24 18:15 05/21/24 12:13 4 MG Pantoprazole Sodium 40 mg BID IV 05/16/24 10:00 05/21/24 09:31 40 MG Polyethylene Glycol 17 gm DAILYPRN PRN PO 05/19/24 14:45 05/19/24 17:21 17 GM Enoxaparin Sodium 40 mg DAILY SC 05/20/24 23:15 05/21/24 09:31 40 MG Azithromycin 250 ml @ 125 mls/hr DAILY IV 05/20/24 23:15 05/21/24 09:31 125 MLS/HR Acetaminophen/ Hydrocodone Bitart 1 tab Q4HPRN PRN PO 05/20/24 23:45 Cancel Acetaminophen/ Hydrocodone Bitart 1 tab Q8HPRN PRN PO 05/21/24 00:00 05/21/24 00:18 1 TAB Methylprednisolone Sodium Succinate 40 mg BID IV 05/21/24 10:00 05/21/24 10:54 40 MG Ipratropium [place] 0.5 mg Q4HR NEB 05/21/24 10:00 05/21/24 10:19 0.5 MG Albuterol 2.5 mg Q4HPRN PRN NEB 05/21/24 09:30 Levofloxacin 750 mg Q48H PO 05/21/24 10:45 05/21/24 10:55 750 MG objective General appearance: No acute distress Respiratory: Lungs clear to auscultation. No wheezing, crackles Cardiovascular: Sinus tachycardia, no murmurs. No edema Abdomen: Soft, nondistended, nontender, bowel sounds present MSK: Normal range of motion. Neuro: Alert, no neurological deficits Psych: Appropriate mood and affect. laboratory and microbiology Laboratory Tests 05/21/24 06:44 Test 05/21/24 06:44 Range/Units Serum Glucose 86 74-106 mg/dL Assessment/Plan 1. Anemia likely due to Sickle Cell Crisis 2. Acute Respiratory Failure 3. JUDY-resolved 4. Constipation Plan: -Received 4U PRBC since admission. -Hematology/oncology consulted. Direct Joseph negative, less likely AIHA. Will repeat outpatient. -Bone marrow biopsy completed -Pediatric tube for blood draws -Continue nasal cannula with goal oxygen >92%. -Avoid nephrotoxic medications. JUDY likely secondary to volume depletion, improving. -Hepatitis C antibody positive. Patient notes history of transfusion as a teenager in the . Denies history of drug abuse. GI to follow up outpatient. -SLE panel ordered -Legionella antigen ordered -Azithromycin started for concern of atypical infection. Will transition to levofloxacin on discharge. Solumedrol 40mg IV BID started. -Miralax ordered for constipation -Anticipated discharge 05/22. -Full Code Dietary Evaluation Review Comments: 1.Continue diet regime Expected Outcomes/Goals: 1. Pt will consume >75% of estimated needs within 3-5 days Plan discussed with: Patient BRENNAN MASSEY Keaton OSUNA May 21, 2024 13:44
[2024-05-21] MEDS ORDERED: METH4PAK PO (16:58)
[2024-05-21] MEDS ORDERED: LEVO500T91 PO (16:58)
[2024-05-21] MEDS ORDERED: BENZ100C97 PO (17:00)
[2024-05-21 17:06] LABS: Anti-dsDNA Antibody <1 IU/mL (0-9); RNP Antibody <0.2 AI (0.0-0.9); Sjogren's Anti-SS-A Antibody <0.2 AI (0.0-0.9); Sjogren's Anti-SS-B Antibody <0.2 AI (0.0-0.9); Smith Antibody <0.2 AI (0.0-0.9)
[2024-05-21] MEDS: ALBUTEROL SULF 2.5 MG/0.5ML(0.5%) NEB SOLN NEB PRN (18:16)
[2024-05-21 20:06] LABS: Anti-Nuclear Antibody Direct Negative (Negative); Antiscleroderma-70 Antibody <0.2 AI (0.0-0.9)
--- NOTE | 2024-05-21 22:38 | DVHPN2 ---
Consult Progress Note Date Seen: May 21, 2024 Objective vital signs Vital Sign Date Time Temp Pulse Resp B/P (MAP) Pulse Ox O2 Delivery O2 Flow Rate FiO2 05/21/24 22:09 101 14 99 05/21/24 22:01 Nasal Cannula 2.0 05/21/24 22:01 28 05/21/24 21:00 98.5 110/58 (75) 98.5 Total Intake and Output 05/20/24 05/20/24 05/21/24 15:00 23:00 07:00 Intake Total 500 ml 300 ml Output Total 250 ml Balance -250 ml 500 ml 300 ml medications Current Medications Medications Dose Ordered Sig/Jodi Route Start Time Stop Time Status Last Admin Dose Admin Nitroglycerin 0.4 mg Q5MINP PRN SL 05/15/24 16:15 Morphine Sulfate 2 mg Q30M PRN IV 05/15/24 16:15 Hydromorphone HCl 0.5 mg Q4HPRN PRN IV 05/15/24 17:45 05/21/24 12:14 0.5 MG Ondansetron HCl 4 mg Q4HPRN PRN IV 05/15/24 18:15 05/21/24 12:13 4 MG Pantoprazole Sodium 40 mg BID IV 05/16/24 10:00 05/21/24 22:13 40 MG Polyethylene Glycol 17 gm DAILYPRN PRN PO 05/19/24 14:45 05/19/24 17:21 17 GM Enoxaparin Sodium 40 mg DAILY SC 05/20/24 23:15 05/21/24 09:31 40 MG Azithromycin 250 ml @ 125 mls/hr DAILY IV 05/20/24 23:15 05/21/24 09:31 125 MLS/HR Acetaminophen/ Hydrocodone Bitart 1 tab Q4HPRN PRN PO 05/20/24 23:45 Cancel Acetaminophen/ Hydrocodone Bitart 1 tab Q8HPRN PRN PO 05/21/24 00:00 05/21/24 22:13 1 TAB Methylprednisolone Sodium Succinate 40 mg BID IV 05/21/24 10:00 05/21/24 22:13 40 MG Ipratropium [place] 0.5 mg Q4HR NEB 05/21/24 10:00 05/21/24 22:01 0.5 MG Albuterol 2.5 mg Q4HPRN PRN NEB 05/21/24 09:30 05/21/24 22:01 2.5 MG Levofloxacin 750 mg Q48H PO 05/21/24 10:45 05/21/24 10:55 750 MG laboratory and microbiology Laboratory Tests 05/21/24 06:44 Test 05/21/24 06:44 Range/Units Serum Glucose 86 74-106 mg/dL Problem List/Assessment/Plan Problems(with codes): (1) Pneumonia (2) Acute chest syndrome due to sickle cell crisis (3) Symptomatic anemia (4) Gallstones (5) Sickle cell anemia (6) Elevated lactic acid level (7) Sickle cell crisis (8) Acute gallstone pancreatitis (9) Common bile duct dilatation Problem List/Assessment/Plan ASSESSMENT AND PLAN: ID Problem List: - Sickle cell anemia - Acute chest syndrome - Pneumonia - Hemolytic anemia - Elevated bilirubin - Status post ERCP with sphincterotomy Assessment This is a 34 y.o. female, has a past medical history of sickle cell anemia, who presents with nausea, vomiting, abdominal pain, and jaundice. Patient was recently hospitalized at [facility] for elevated bilirubin and underwent ERCP with sphincterotomy, leading to improvement in her symptoms. She now presents with total bilirubin of 4.4 on admission, hemoglobin of 3.7, and signs consistent with hemolytic anemia. Chest X-ray reveals bilateral interstitial prominence with hyperinflation of the lungs. She is hypoxic, initially requiring a non-rebreather mask at 12 liters, now on 2 liters nasal cannula. Lab findings show indirect hyperbilirubinemia with a low haptoglobin level (<10), elevated AST (162), normal ALT (30), and lactate of 3.1. Given her history and current findings, she is experiencing a sickle cell crisis with acute chest syndrome and hemolytic anemia. Plan: - Continue ceftriaxone and azithromycin for community-acquired pneumonia. - Treat sickle cell crisis with hydration, pain control, and blood transfusions as tolerated. - Monitor oxygen saturation; if hypoxia persists, obtain sputum cultures and Legionella urinary antigen. - Consider future cholecystectomy if she has recurrent episodes, as gallbladder appears to be full. - Monitor labs, including complete blood count and liver function tests. - Encourage smoking cessation, including marijuana use. Isolation Precautions: standard Assessment and plan was discussed with the patient as written above Plan is subject to change pending incorporation of new incoming information/diagnostics. Updates may be added as addendum at the bottom (OR TOP) of this note Thank you for interesting consult. We will continue to follow. Please contact us for any questions or concerns. Sharif Moore M.D. [facility] Ph: ? History: The patient's chart and medications were reviewed in detail and the patient was seen and examined. History obtained from: patient Yadira Powell is a 34 y.o. female, has a past medical history of sickle cell anemia, who presents with nausea, vomiting, abdominal pain, and jaundice. She reports that her symptoms have been gradually improving. She had significant epigastric pain upon admission but denies current abdominal pain, nausea, or vomiting. She has not had an episode of sickle cell crisis in over 14 years. Previous crises were associated with pneumonias. She denies smoking cigarettes or alcohol use but does smoke marijuana. She is allergic to penicillin and sulfa drugs. Review of Systems: A complete 10 system review of systems was completed and negative except as noted in the HPI or here. ROS: - CONSTITUTIONAL: Denies weight loss, fever, and chills. - HEENT: Denies changes in vision and hearing. - RESPIRATORY: Denies shortness of breath and cough. - CV: Denies palpitations and chest pain. - GI: Reports nausea, vomiting, and abdominal pain on admission; symptoms improving. - : Denies dysuria and urinary frequency. - MSK: Denies myalgia and joint pain. - SKIN: Denies rash and pruritus. - NEUROLOGICAL: Denies headache and syncope. - PSYCHIATRIC: Denies recent changes in mood. Denies anxiety and depression. Past Medical History: Diagnosis Date Sickle cell anemia Past Surgical History: Recent ERCP with sphincterotomy for choledocholithiasis. Home Medications: Medication list not provided. Allergies: Penicillin Sulfa drugs Family History: Family history not provided. Social History: Socioeconomic History Marital status: Not provided Number of children: Not provided Years of education: Not provided Highest education level: Not provided Occupational History Not provided Tobacco Use Smoking status: Never smoker Smokeless tobacco: Never Vaping Use Vaping status: Never used Substance and Sexual Activity Alcohol use: Denies alcohol use Drug use: Smokes marijuana Sexual activity: Not provided Other Topics Concern Not provided Social Determinants of Health Not provided Objective: Vital Signs on Arrival: Temp: 99.5 F BP: 102/57 Pulse: Not provided Resp: 16 SpO2: 98% on non- rebreather mask at 12L Most Recent Vital Signs: Temp: Not provided BP: Not provided Pulse: Not provided Resp: 16 SpO2: 98% on 2L/min nasal cannula Admission Weight: Not provided Physical Exam: General: NAD Neck: Supple. No masses. HEENT: PERRL. Normal lids and conjunctiva. Moist mucous membranes. Oropharynx without lesions, exudates or excessive erythema. Normal appearance of the external aspects of the nose and ears. Heart: Regular rhythm, normal rate. No murmur. No lower extremity edema. Lungs: Normal respiratory effort. Clear to auscultation bilaterally. No wheezes. No crackles. Abdomen: Soft. Non-tender. Non-distended. No masses or abdominal hernia. Msk: No digital cyanosis. Normal strength and tone in all 4 limbs Skin: Warm and dry, no rashes. Neuro: Alert. No facial droop or slurred speech. Extra-ocular movements intact. Sensation intact to soft touch in all 4 limbs. Psych: Appropriate mood. Full affect. Oriented to person, place, time, and situation. Lines: Active Lines Peripheral IV Line details not provided. Diagnostic Studies: Available diagnostic studies were reviewed personally. Significant relevant results and findings are outlined below or addressed in the Assessment and Plan above. Pertinent Imaging: Recent Results (from the past 72 hour(s)) Chest X-ray: - Impression IMPRESSION: - Bilateral interstitial prominence with hyperinflation of the lungs. Renal Ultrasound: - Impression IMPRESSION: - Chronic renal disease with trace right hydronephrosis. Labs: - Hemoglobin: 3.7 WBC: 9.7 - Reticulocyte count: 3.4% - Haptoglobin: less than 10 - Total bilirubin: 5 (on admission), direct bilirubin: 1.5 AST: 162, ALT: 30 - Lactic acid: 3.1 - BUN: 14, Creatinine: 0.9 - Antibody screen: Negative - HIV, mononucleosis tests: Negative Plan discussed with: Patient Dietary Evaluation Review Comments: 1.Continue diet regime Expected Outcomes/Goals: 1. Pt will consume >75% of estimated needs within 3-5 days SHARIF MOORE MD May 21, 2024 22:38
--- NOTE | 2024-05-21 22:38 | DVHPN2 ---
Progress Note - Dictate Date Seen: May 21, 2024 Medical Necessity Reason Pt with a Central, PICC or Fol: No Subjective Patient was seen and evaluated in follow up. No overnight events. Patient is resting in bed. Patient has improvement in SOB. Patient is on 2 LPM NC. HGB 9.3, HCT 27.5, SLURRY WORKER 1.57. Echocardiogram is ordered. vital signs Vital Sign Date Time Temp Pulse Resp B/P (MAP) Pulse Ox O2 Delivery O2 Flow Rate FiO2 05/21/24 22:09 101 14 99 05/21/24 22:01 Nasal Cannula 2.0 05/21/24 22:01 28 05/21/24 21:00 98.5 110/58 (75) 98.5 Total Intake and Output 05/20/24 05/20/24 05/21/24 15:00 23:00 07:00 Intake Total 500 ml 300 ml Output Total 250 ml Balance -250 ml 500 ml 300 ml medications Current Medications Medications Dose Ordered Sig/Jodi Route Start Time Stop Time Status Last Admin Dose Admin Nitroglycerin 0.4 mg Q5MINP PRN SL 05/15/24 16:15 Morphine Sulfate 2 mg Q30M PRN IV 05/15/24 16:15 Hydromorphone HCl 0.5 mg Q4HPRN PRN IV 05/15/24 17:45 05/21/24 12:14 0.5 MG Ondansetron HCl 4 mg Q4HPRN PRN IV 05/15/24 18:15 05/21/24 12:13 4 MG Pantoprazole Sodium 40 mg BID IV 05/16/24 10:00 05/21/24 22:13 40 MG Polyethylene Glycol 17 gm DAILYPRN PRN PO 05/19/24 14:45 05/19/24 17:21 17 GM Enoxaparin Sodium 40 mg DAILY SC 05/20/24 23:15 05/21/24 09:31 40 MG Azithromycin 250 ml @ 125 mls/hr DAILY IV 05/20/24 23:15 05/21/24 09:31 125 MLS/HR Acetaminophen/ Hydrocodone Bitart 1 tab Q4HPRN PRN PO 05/20/24 23:45 Cancel Acetaminophen/ Hydrocodone Bitart 1 tab Q8HPRN PRN PO 05/21/24 00:00 05/21/24 22:13 1 TAB Methylprednisolone Sodium Succinate 40 mg BID IV 05/21/24 10:00 05/21/24 22:13 40 MG Ipratropium [place] 0.5 mg Q4HR NEB 05/21/24 10:00 05/21/24 22:01 0.5 MG Albuterol 2.5 mg Q4HPRN PRN NEB 05/21/24 09:30 05/21/24 22:01 2.5 MG Levofloxacin 750 mg Q48H PO 05/21/24 10:45 05/21/24 10:55 750 MG objective GENERAL: Awake, alert, oriented. LUNGS: Clear. CARDIOVASCULAR: Sinus tachycardia, no murmurs. No edema. ABDOMEN: Soft. laboratory and microbiology Laboratory Tests 05/21/24 06:44 Test 05/21/24 06:44 Range/Units Serum Glucose 86 74-106 mg/dL Problem List Anemia due to unspecified etiology. Acute Respiratory Failure. JUDY. Constipation. Assessment/Plan Continued all current supportive medical care. Echocardiogram. Dilaudid for pain management. GI prophylactics. Nitro SL. Additional plan as per the hospital course. Dietary Evaluation Review Comments: 1.Continue diet regime Expected Outcomes/Goals: 1. Pt will consume >75% of estimated needs within 3-5 days Plan discussed with: Patient SAYDA CLEMENTE MD May 21, 2024 22:38
[2024-05-22] VITALS (12 sets, daily range): BP systolic 87–98; BP diastolic 48–56; PULSE 75–112; RESP 12–18; TEMP 97.6–98.4; O2SAT 96–100
[2024-05-22 07:30] LABS: Alanine Aminotransferase 11 U/L (7-40); Alkaline Phosphatase 83 U/L (46-116); Anion Gap 8 (5-15); Aspartate Aminotransferase 27 U/L (13-40); BUN/Creatinine Ratio 14.6 (10.0-20.0); Calcium 9.9 mg/dL (8.7-10.4); Carbon Dioxide 23 mmol/L (20-31); Chloride 102 mmol/L (98-107); Potassium 4.2 mmol/L (3.5-5.1)
[2024-05-22 07:31] LABS: Total Protein 7.9 g/dL (5.7-8.2)
[2024-05-22 07:32] LABS: Albumin 3.2 g/dL (3.2-4.8); Bilirubin, Direct 0.8 mg/dL (<0.3); Bilirubin, Total 1.5 mg/dL (0.2-1.0); Blood Urea Nitrogen 24 mg/dL (9-23); Glucose 118 mg/dL (74-106); Sodium 133 mmol/L (136-145)
[2024-05-22 07:42] LABS: Hematocrit 26.8 % (36.0-46.0); Hemoglobin 8.9 g/dL (12.2-16.2); Mean Corpuscular Hemoglobin 31.3 pg (28.0-32.0); Mean Corpuscular Hgb Conc. 33.3 g/dL (32.0-36.0); Mean Corpuscular Volume 93.8 fL (80.0-100.0); Platelet Count (auto) 134 10^3/uL (140-450); Red Blood Cells 2.86 10^6/uL (4.0-5.20); Red Cell Distribution Width 17.9 % (11.8-14.3); White Blood Cell 3.1 10^3/uL (4.4-10.8)
[2024-05-22 08:07] LABS: Band Neutrophils % (manual) 0; Basophils % (manual) 0 (0.0-2.0); Blast Cells 0; Eosinophils % (manual) 0 (0-7); Myelocytes % 0; Promyelocytes % 0; Reactive Lymphocytes 0
[2024-05-22 11:20] LABS: Lymphocytes % (manual) 13 (10.0-50.0); Metamyelocytes % 1; Monocytes % (manual) 5 (0-12); Platelet Estimate Decreased
[2024-05-22 12:06] LABS: Antiparietal Cell Antibody 2.2 Units (0.0-20.0)
[2024-05-22] MEDS: SODIUM CHLORIDE 0.9% 500 ML IV ONE (13:06)
--- NOTE | 2024-05-22 15:51 | DVHPN2 ---
Progress Note - Dictate Date Seen: May 22, 2024 Has the PT tested + for MRSA If YES, has PT been informed?: Yes Medical Necessity Reason Pt with a Central, PICC or Fol: No Subjective Patient is feeling much better. No significant coughing or shortness of breath vital signs Vital Sign Date Time Temp Pulse Resp B/P (MAP) Pulse Ox O2 Delivery O2 Flow Rate FiO2 05/22/24 14:25 107 12 100 05/22/24 14:19 Nasal Cannula 2.0 05/22/24 14:19 28 05/22/24 13:30 98.0 98/53 (68) 98.0 Total Intake and Output 05/21/24 05/21/24 05/22/24 15:00 23:00 07:00 Intake Total 664 ml 450 ml 800 ml Output Total 675 ml Balance 664 ml 450 ml 125 ml medications Current Medications Medications Dose Ordered Sig/Jodi Route Start Time Stop Time Status Last Admin Dose Admin Nitroglycerin 0.4 mg Q5MINP PRN SL 05/15/24 16:15 Morphine Sulfate 2 mg Q30M PRN IV 05/15/24 16:15 Hydromorphone HCl 0.5 mg Q4HPRN PRN IV 05/15/24 17:45 05/21/24 12:14 0.5 MG Ondansetron HCl 4 mg Q4HPRN PRN IV 05/15/24 18:15 05/21/24 12:13 4 MG Pantoprazole Sodium 40 mg BID IV 05/16/24 10:00 05/22/24 09:31 40 MG Polyethylene Glycol 17 gm DAILYPRN PRN PO 05/19/24 14:45 05/19/24 17:21 17 GM Enoxaparin Sodium 40 mg DAILY SC 05/20/24 23:15 05/21/24 09:31 40 MG Azithromycin 250 ml @ 125 mls/hr DAILY IV 05/20/24 23:15 05/22/24 09:31 125 MLS/HR Acetaminophen/ Hydrocodone Bitart 1 tab Q4HPRN PRN PO 05/20/24 23:45 Cancel Acetaminophen/ Hydrocodone Bitart 1 tab Q8HPRN PRN PO 05/21/24 00:00 05/21/24 22:13 1 TAB Methylprednisolone Sodium Succinate 40 mg BID IV 05/21/24 10:00 05/22/24 09:31 40 MG Ipratropium [place] 0.5 mg Q4HR NEB 05/21/24 10:00 05/22/24 14:19 0.5 MG Albuterol 2.5 mg Q4HPRN PRN NEB 05/21/24 09:30 05/22/24 14:19 2.5 MG Levofloxacin 750 mg Q48H PO 05/21/24 10:45 05/21/24 10:55 750 MG objective HEAD AND NECK: Unremarkable. No neck nodes or masses. Conjunctiva: Unremarkable. No mucosal hemorrhage. CHEST: Chest wall, no tenderness. LUNGS: Clear. CARDIOVASCULAR: Regular sinus rhythm. No murmurs or gallops. ABDOMEN: No organomegaly, tenderness or ascites. Bowel sounds present. LYMPHATICS: No significant lymphadenopathy. SKIN: Unremarkable for any petechiae, purpura, or ecchymosis. Psych: No abnormalities Available data reviewed laboratory and microbiology Laboratory Tests 05/22/24 06:40 Test 05/22/24 06:40 Range/Units Serum Glucose 118 H 74-106 mg/dL Assessment/Plan 1. Anemia with some history of sickle cell and that has not bothered her for years but lately in the last 2 months she has been needing transfusions and may need to rule out other etiologies. She has high total bilirubin, high AST, indirect bilirubin is elevated, may indicate hemolysis, she has multiple antibodies . Could be secondary to lung infection Direct Joseph is negative White count 3.1 hemoglobin 8.9 platelets 134 haptoglobin less than 10 Hemoglobin electrophoresis is pending. Reticulocyte count 3.4 Rheumatoid factor is negative RAMIRO negative SSA and B is negative double-stranded DNA is negative HIV 1 and 2 is negative legionnaires antigen and antibodies are pending. Monoscreen is negative Hepatitis C antibody is reactive A and B is negative. Stool guaiac is negative. Albumin 3.2 total protein 7.9 B12 828. AST 27 ALT 11 total bili 1.5. Serum iron 178 saturation 90.8 ferritin 5744, probably after the transfusion. GFR 33 2. Possible interstitial lung disease/pneumonia 3. hematuria may rule out UTI Or any other local etiology Plan: The patient is doing better since she started on antibiotics I could follow her in the office. She had her bone marrow evaluation done and the report is pending Dietary Evaluation Review Comments: 1.Continue diet regime Expected Outcomes/Goals: 1. Pt will consume >75% of estimated needs within 3-5 days Plan discussed with: Patient DANILO CANTU MD May 22, 2024 15:51
[2024-05-22 16:06] LABS: Actin (Smooth Muscle) Antibody 15 Units (0-19); Mitochondrial (M2) Antibody <20.0 Units (0.0-20.0)
[2024-05-22] MEDS ORDERED: IPRA0.00 IN (18:18)
--- NOTE | 2024-05-22 22:20 | DVHPN2 ---
Progress Note - Dictate Date Seen: May 22, 2024 Medical Necessity Reason Pt with a Central, PICC or Fol: No Subjective Patient was seen and evaluated in follow up. Patient is stable on 2 LPM NC. HGB 8.9, HCT 26.8, NA 133, BUN 24, RN LIAISON 1.64. Patient is cardiac stable for discharge. vital signs Vital Sign Date Time Temp Pulse Resp B/P (MAP) Pulse Ox O2 Delivery O2 Flow Rate FiO2 05/22/24 10:02 97 12 100 05/22/24 09:56 Nasal Cannula 2.0 05/22/24 09:56 28 05/22/24 08:30 97.6 97/52 (67) 97.6 Total Intake and Output 05/21/24 05/21/24 05/22/24 15:00 23:00 07:00 Intake Total 664 ml 450 ml 800 ml Output Total 675 ml Balance 664 ml 450 ml 125 ml medications Current Medications Medications Dose Ordered Sig/Jodi Route Start Time Stop Time Status Last Admin Dose Admin Nitroglycerin 0.4 mg Q5MINP PRN SL 05/15/24 16:15 Morphine Sulfate 2 mg Q30M PRN IV 05/15/24 16:15 Hydromorphone HCl 0.5 mg Q4HPRN PRN IV 05/15/24 17:45 05/21/24 12:14 0.5 MG Ondansetron HCl 4 mg Q4HPRN PRN IV 05/15/24 18:15 05/21/24 12:13 4 MG Pantoprazole Sodium 40 mg BID IV 05/16/24 10:00 05/22/24 09:31 40 MG Polyethylene Glycol 17 gm DAILYPRN PRN PO 05/19/24 14:45 05/19/24 17:21 17 GM Enoxaparin Sodium 40 mg DAILY SC 05/20/24 23:15 05/21/24 09:31 40 MG Azithromycin 250 ml @ 125 mls/hr DAILY IV 05/20/24 23:15 05/22/24 09:31 125 MLS/HR Acetaminophen/ Hydrocodone Bitart 1 tab Q4HPRN PRN PO 05/20/24 23:45 Cancel Acetaminophen/ Hydrocodone Bitart 1 tab Q8HPRN PRN PO 05/21/24 00:00 05/21/24 22:13 1 TAB Methylprednisolone Sodium Succinate 40 mg BID IV 05/21/24 10:00 05/22/24 09:31 40 MG Ipratropium [place] 0.5 mg Q4HR NEB 05/21/24 10:00 05/22/24 09:56 0.5 MG Albuterol 2.5 mg Q4HPRN PRN NEB 05/21/24 09:30 05/22/24 09:56 2.5 MG Levofloxacin 750 mg Q48H PO 05/21/24 10:45 05/21/24 10:55 750 MG objective GENERAL: Awake, alert, oriented. LUNGS: Clear. CARDIOVASCULAR: Sinus tachycardia, no murmurs. No edema. ABDOMEN: Soft. laboratory and microbiology Laboratory Tests 05/22/24 06:40 Test 05/22/24 06:40 Range/Units Serum Glucose 118 H 74-106 mg/dL Problem List Anemia due to unspecified etiology. Acute Respiratory Failure. JUDY. Constipation. Assessment/Plan Continued all current supportive medical care. Echocardiogram. Dilaudid for pain management. GI prophylactics. Nitro SL. Additional plan as per the hospital course. Dietary Evaluation Review Comments: 1.Continue diet regime Expected Outcomes/Goals: 1. Pt will consume >75% of estimated needs within 3-5 days Plan discussed with: Patient SAYDA CLEMENTE MD May 22, 2024 13:06
--- NOTE | 2024-05-22 22:45 | DVHSR ---
APPROVED REPORT EXAM: Two-dimensional and M-mode echocardiogram with Doppler, color Doppler and Bubble Study. Blood Pressure: 132/75 mmHg INDICATION Heart Failure RISK FACTORS Height: 5'3", Weight: 95 DIMENSIONS LVDd3.8 (3.8-5.7cm)LA (2D)2.6 (1.9-4.0cm)Aortic Root3.0 (2.0-3.7cm) LVDs2.6 (2.5-4.0cm)LA (MM) (1.9-4.0cm)Aortic Cusp Exc1.9 (1.5-2.0cm) EF (%) 60.0 (55-70%)Rt. Atrium3.8 (1.9-4.0cm)Asc. Aorta cm IVSd0.9 (0.7-1.1cm)RV (D)3.6 (1.8-2.4cm) PWd1.0 (0.7-1.1cm) Mitral Valve MitralMitral Stenosis E/A ratio0.02D MVAcm2 Aortic Valve Aortic ValveAortic Stenosis V10.84m/Piper Mean GR.2mmHg V20.99m/Piper Peak GR.4mmHg LVOT Diameter2.1 (1.8-2.4cm)Doppler AVA2.94cm2 Pulmonic Valve V21.22m/s Tricuspid Valve TR Velocity2.56m/s [id number] Other Information Quality : Technically LimitedRhythm : Technically limited study due to body habitus. Conclusion MILD LVH AND MILD LV DIASTOLIC DYSFUNCTION LV EJECTION FRACTION IS 65% NORMAL VALVES NO EFFUSION
--- NOTE | 2024-05-23 14:06 | DVHPN2 ---
Consult Progress Note Date Seen: May 22, 2024 Subjective Patient reports: Feels better (breathing better no cough) Objective vital signs Vital Sign Date Time Temp Pulse Resp B/P (MAP) Pulse Ox O2 Delivery O2 Flow Rate FiO2 05/22/24 14:25 107 12 100 05/22/24 14:19 Nasal Cannula 2.0 05/22/24 14:19 28 05/22/24 13:30 98.0 98/53 (68) 98.0 Total Intake and Output 05/22/24 05/22/24 05/23/24 15:00 23:00 07:00 Intake Total 750 ml Balance 750 ml medications Current Medications Medications Dose Ordered Sig/Jodi Route Start Time Stop Time Status Last Admin Dose Admin Acetaminophen/ Hydrocodone Bitart 1 tab Q4HPRN PRN PO 05/20/24 23:45 Cancel Physical Exam: General: NAD Neck: Supple. No masses. HEENT: PERRL. Normal lids and conjunctiva. Moist mucous membranes. Oropharynx without lesions, exudates or excessive erythema. Normal appearance of the external aspects of the nose and ears. Heart: Regular rhythm, normal rate. No murmur. No lower extremity edema. Lungs: Normal respiratory effort. Clear to auscultation bilaterally. No wheezes. No crackles. Abdomen: Soft. Non-tender. Non-distended. No masses or abdominal hernia. Msk: No digital cyanosis. Normal strength and tone in all 4 limbs Skin: Warm and dry, no rashes. Neuro: Alert. No facial droop or slurred speech. Extra-ocular movements intact. Sensation intact to soft touch in all 4 limbs. Psych: Appropriate mood. Full affect. Oriented to person, place, time, and situation. laboratory and microbiology Laboratory Tests 05/22/24 06:40 Test 05/22/24 06:40 Range/Units Serum Glucose 118 H 74-106 mg/dL Problem List/Assessment/Plan Problem List/Assessment/Plan ASSESSMENT AND PLAN: ID Problem List: - Sickle cell anemia - Acute chest syndrome - Pneumonia - Hemolytic anemia - Elevated bilirubin - Status post ERCP with sphincterotomy Assessment This is a 34 y.o. female, has a past medical history of sickle cell anemia, who presents with nausea, vomiting, abdominal pain, and jaundice. Patient was recently hospitalized at [facility] for elevated bilirubin and underwent ERCP with sphincterotomy, leading to improvement in her symptoms. She now presents with total bilirubin of 4.4 on admission, hemoglobin of 3.7, and signs consistent with hemolytic anemia. Chest X-ray reveals bilateral interstitial prominence with hyperinflation of the lungs. She is hypoxic, initially requiring a non-rebreather mask at 12 liters, now on 2 liters nasal cannula. Lab findings show indirect hyperbilirubinemia with a low haptoglobin level (<10), elevated AST (162), normal ALT (30), and lactate of 3.1. Given her history and current findings, she is experiencing a sickle cell crisis with acute chest syndrome and hemolytic anemia. Plan: - Continue ceftriaxone and azithromycin for community-acquired pneumonia. - Treat sickle cell crisis with hydration, pain control, and blood transfusions as tolerated. - Monitor oxygen saturation; if hypoxia persists, obtain sputum cultures and Legionella urinary antigen. - Consider future cholecystectomy if she has recurrent episodes, as gallbladder appears to be full. - Monitor labs, including complete blood count and liver function tests. - Encourage smoking cessation, including marijuana use. Isolation Precautions: standard Assessment and plan was discussed with the patient as written above Plan is subject to change pending incorporation of new incoming information/diagnostics. Updates may be added as addendum at the bottom (OR TOP) of this note Thank you for interesting consult. We will continue to follow. Please contact us for any questions or concerns. Sharif Moore M.D. [facility] Ph: ? Plan discussed with: Patient Dietary Evaluation Review Comments: 1.Continue diet regime Expected Outcomes/Goals: 1. Pt will consume >75% of estimated needs within 3-5 days SHARIF MOORE MD May 23, 2024 14:06
== END 2024-05-22 16:32 | disposition home health service (06) | DRG 802 ==
LOC: EDBD 11:46 → ER 11:46 → TELE 16:14 → TELE-CENTR 18:52
PROVIDERS: ADMIT Internal Medicine; ATTEND Student in an Organized Health Care Education/Training Program
PROC: 30233N1 Transfusion of Nonautologous Red Blood Cells into Peripheral Vein, Percutaneous Approach (ICD-10-PCS; 2024-05-15)
PROC: 0Q923ZX Drainage of Right Pelvic Bone, Percutaneous Approach, Diagnostic (ICD-10-PCS; principal; 2024-05-20)
DX: D57.01 Hb-SS disease with acute chest syndrome (principal); J15.69 Pneumonia due to other Gram-negative bacteria; J96.01 Acute respiratory failure with hypoxia; J15.9 Unspecified bacterial pneumonia; N17.9 Acute kidney failure, unspecified; E87.20 Acidosis, unspecified; K80.20 Calculus of gallbladder without cholecystitis without obstruction; K59.00 Constipation, unspecified; E86.9 Volume depletion, unspecified; N18.9 Chronic kidney disease, unspecified; Z83.3 Family history of diabetes mellitus; Z83.2 Family history of diseases of the blood and blood-forming organs and certain disorders involving the immune mechanism; Z88.2 Allergy status to sulfonamides; Z88.0 Allergy status to penicillin
CPT/HCPCS: 10005; 36415; 71045; 71260; 72192; 76775; 77012; 80048; 80053; 80074; 80307; 81001; 82248; 82270; 82607; 82728; 82746; 83010; 83021; 83036; 83540; 83550; 83605; 83615; 85007; 85014; 85018; 85025; 85027; 85045; 85384; 85610; 85660; 86160; 86225; 86235; 86308; 86376; 86431; 86644; 86645; 86703; 86850; 86860; 86870; 86880; 86900; 86901; 86905; 86906; 86920; 86922; 87040; 87081; 87278; 87426; 87449; 93005; 93306; 94640; 96361; 96374; 97110; 97116; 97163; 97530; 99291; G0378; J2003; J2250; J2405; J2470

== ENCOUNTER 2024-08-15 12:21 | Emergency (ER) | payer OTHER ==
[~2024-08-15] VITALS: Ht 160 cm; Wt 40.1 kg
[~2024-08-15 12:21] MED LIST: BENZ100C97 PO; IPRA0.00 IN; LEVO500T91 PO; METH4PAK PO
--- NOTE | 2024-08-15 13:57 | ED.PDOC ---
History of Present Illness HPI Comments 74 y/o F, with PMHX of sickle cell anemia presents to the ED for CC of abnormal labs. Per patient's daughter, patient had labs drawn [id number] and was relayed to the ED by PCP for a blood transfusion due to Hgb being 6.6. Patient states, she has had recent symptoms of a common cold, increased fatigue, and shortness of breath. Patient denies current chest pain, fever, chills, nausea, or vomiting. No other symptoms or modifying factors at this time. Chief Complaint: Abnormal LAB's Time Seen by MD: 13:00 Primary Care Provider: UNKNOWN Reviewed Notes: Nurses Notes, Medications, Allergies Allergies: Coded Allergies: Penicillins (Verified Allergy, Unknown, 04/16/24) Sulfa Antibiotics (Verified Allergy, Unknown, 04/16/24) Home Meds Active Scripts Ipratropium-Albuterol (Ipratropium [place]/Albut) 1 Daphne Daphne, 1 DAPHNE IN Q6HP PRN for 30 Days, #90 ML 1 Refill Prov:SHILPABRENNAN Keaton [facility] 05/22/24 Benzonatate (Benzonatate) 100 Mg Cap, 1 CAP PO TID PRN, #30 CAP 0 Refills Take as needed for cough. 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 ANALYST Hx Family History Family History: Family hx of DM Social History Smoker: Non-Smoker Alcohol: Denies ETOH Use Drugs: Marijuana Lives In: Home Constitutional: reports: fatigue; denies: chills, diaphoresis, fever, malaise, sweats, weakness, others EENTM: denies: blurred vision, double vision, ear bleeding, ear discharge, ear drainage, ear pain, ear ringing, eye pain, eye redness, hearing loss, mouth pain, mouth swelling, nasal discharge, nose bleeding, nose congestion, nose pain, photophobia, tearing, throat pain, throat swelling, voice changes, others Respiratory: reports: shortness of breath; denies: cough, hemoptysis, orthopnea, SOB at rest, SOB with excertion, stridor, wheezing, others Cardiovascular: denies: chest pain, dizzy spells, diaphoresis, Dyspnea on exertion, edema, irregular heart beat, left arm pain, lightheadedness, palpitations, PND, syncope, others Gastrointestinal: denies: abdomen distended, abdominal pain, blood streaked bowels, constipated, diarrhea, dysphagia, difficulty swallowing, hematemesis, melena, nausea, poor appetite, poor fluid intake, rectal bleeding, rectal pain, vomiting, others Genitourinary: denies: abnormal vagina bleeding, burning, dyspareunia, dysuria, flank pain, frequency, hematuria, incontinence, pain, , vagina discharge, urgency, others Neurological: denies: dizziness, fainting, headache, left sided numbness, left sided weakness, numbness, paresthesia, pre-existing deficit, right sided numbness, right sided weakness, seizure, speech problems, tingling, tremors, weakness, others Musculoskeletal: denies: back pain, gout, joint pain, joint swelling, muscle pain, muscle stiffness, neck pain, others Integumetry: denies: bruises, change in color, change in hair/nails, dryness, laceration, lesions, lumps, rash, wounds, others Allergic/Immunocompromised: denies: Difficulty Healing, Frequent Infections, Hives, Itching, others Hematologic/Lymphatic: denies: anemia, blood clots, easy bleeding, easy bruising, swollen glands, others Endocrine: denies: excessive hunger, excessive sweating, excessive thirst, excessive urination, flushing, intolerance to cold, intolerance to heat, unexplained weight gain, unexplained weight loss, others Psychiatric: denies: anxiety, bipolar disorder, depression, hopeless, panic disorder, schizophrenia, sleepless, suicidal, others All Other Systems: Reviewed and Negative Physical Exam General Appearance: No Apparent Distress, Normal HEENT: Normal ENT Inspection, Pharynx Normal Neck: Full Range of Motion, Non-Tender, Normal, Normal Inspection Respiratory: Chest Non-Tender, Lungs Clear, No Accessory Muscle Use, No Respiratory Distress, Normal Breath Sounds Cardiovascular: No Edema, No Murmur, No Gallop, Normal Peripheral Pulses, Regular Rate/Rhythm Breast Exam: Deferred Gastrointestinal: No Organomegaly, Non Tender, No Pulsatile Mass, Normal Bowel Sounds, Soft Genitalia: Deferred Pelvic: Deferred Rectal: Deferred Extremities: Normal inspection, Normal range of motion Musculoskeletal : Apperance: Normal Neurologic: Alert, inspector balance wheel motion II-XII nml as Tested, No Motor Deficits, Normal Affect Cerebellar Function: Other (grossly normal ) Reflexes: NOT DONE Skin: Dry, Normal Color, Warm Lymphatic: No Adenopathy Was a procedure done? Was a procedure done?: No Differential Dx Considerations may include: SICKLE CELL CRISIS X-Ray, Labs, Meds, VS Vital Signs Date Time Temp Pulse Resp B/P (MAP) Pulse Ox O2 Delivery O2 Flow Rate FiO2 08/15/24 13:04 98.9 102 18 111/61 (78) 97 Lab Test 08/15/24 14:02 Range/Units White Blood Count 6.3 4.4-10.8 10^3/uL Red Blood Count 2.02 L 4.0-5.20 10^6/uL Hemoglobin 6.6 *L 12.2-16.2 g/dL Hematocrit 19.9 L 36.0-46.0 % Mean Corpuscular Volume 98.4 80.0-100.0 fL Mean Corpuscular Hemoglobin 32.5 H 28.0-32.0 pg Mean Corpuscular Hemoglobin Concent 33.1 32.0-36.0 g/dL Red Cell Distribution Width 19.0 H 11.8-14.3 % Platelet Count 110 L 140-450 10^3/uL Mean Platelet Volume 10.0 6.9-10.8 fL Neutrophils (%) (Auto) 37.0-80.0 % Lymphocytes (%) (Auto) 10.0-50.0 % Monocytes (%) (Auto) 0.0-12.0 % Basophils (%) (Auto) 0.0-2.0 % Neutrophils # (Auto) 1.6-8.6 10 ^3/uL Lymphocytes # (Auto) 0.4-5.4 10 ^3/uL Monocytes # (Auto) 0-1.3 10 ^3/uL Differential Total Cells Counted Pending Neutrophils % (Manual) Pending Band Neutrophils % (Manual) Pending Lymphocytes % (Manual) Pending Monocytes % (Manual) Pending Eosinophils % (Manual) Pending Basophils % (Manual) Pending Metamyelocytes % (manual) Pending Myelocytes % (Manual) Pending Promyelocytes % (Manual) Pending Blast Cells % (Manual) Pending Nucleated Red Blood Cells % Reactive Lymphocytes Pending Platelet Estimate Pending Reticulocyte Count (auto) 9.81 H 0.5-1.5 % Sodium Level Pending Potassium Level Pending Chloride Level Pending Carbon Dioxide Level Pending Anion Gap Pending Blood Urea Nitrogen Pending Creatinine Pending Glomerular Filtration Rate Calc Pending BUN/Creatinine Ratio Pending Serum Glucose Pending Calcium Level Pending Total Bilirubin Pending Aspartate Amino Transferase (AST) Pending Alanine Aminotransferase (ALT) Pending Alkaline Phosphatase Pending Total Protein Pending Albumin Pending X-Ray, Labs, Meds, VS Comment This 74-year-old female with a past medical history significant for sickle cell anemia presents after being told her hemoglobin 6.6. She was multiple previous transfusion for her sickle cell anemia. The patient also states that she feels dehydrated. She denies generalized body aches except for mild cold symptoms with nasal congestion. The patient was noted to have a hemoglobin 6.6. She was typed and crossed for 2 units. Unfortunately, the patient has multi transfusion likely has antibodies. As such, she will be admitted for further workup management of her symptomatic anemia and sickle cell anemia. Time of 1ST Reevaluation: 13:30 Reevaluation 1ST: Unchanged Patient Education/Counseling: Diagnosis, Treatment Family Education/Counseling: Diagnosis, Treatment Departure 1 Departure Time of Disposition: 14:43 Impression: Primary Impression: Fatigue Additional Impressions: Sickle cell anemia Anemia Disposition: 09 ADMITTED INPATIENT Condition: Serious Critical Care Note Critical Care Time?: No Stability Stability form required: No Heart Score Heart Score: Heart Score Response (Comments) Value History N/A 0 EKG N/A 0 Age N/A 0 Risk Factors N/A 0 Troponin N/A 0 Total 0 I personally scribed for EMMIE GIBSON MD ([email or web address]) on 08/15/24 at 13:57. Electronically submitted by Tiny Abdi [email or web address]). EMMIE GIBSON MD Aug 15, 2024 13:57
[2024-08-15 14:22] LABS: Mean Corpuscular Hgb Conc. 33.1 g/dL (32.0-36.0); Platelet Count (auto) 110 10^3/uL (140-450)
[2024-08-15 14:25] LABS: Hematocrit 19.9 % (36.0-46.0); Mean Corpuscular Hemoglobin 32.5 pg (28.0-32.0); Mean Corpuscular Volume 98.4 fL (80.0-100.0); Red Blood Cells 2.02 10^6/uL (4.0-5.20); White Blood Cell 6.3 10^3/uL (4.4-10.8)
[2024-08-15 14:30] LABS: Hemoglobin 6.6 g/dL (12.2-16.2)
[2024-08-15 14:31] LABS: Band Neutrophils % (manual) 0; Basophils % (manual) 0 (0.0-2.0); Blast Cells 0; Metamyelocytes % 0; Promyelocytes % 0; Reactive Lymphocytes 0
[2024-08-15 14:42] LABS: Albumin 3.7 g/dL (3.2-4.8); Alkaline Phosphatase 94 U/L (46-116); Anion Gap 9 (5-15); Aspartate Aminotransferase 28 U/L (13-40); BUN/Creatinine Ratio 9.6 (10.0-20.0); Blood Urea Nitrogen 11 mg/dL (9-23); Potassium 4.1 mmol/L (3.5-5.1); Sodium 138 mmol/L (136-145); Total Protein 8.1 g/dL (5.7-8.2)
[2024-08-15 14:52] LABS: Alanine Aminotransferase < 9 U/L (7-40); Calcium 10.4 mg/dL (8.7-10.4); Carbon Dioxide 20 mmol/L (20-31); Chloride 109 mmol/L (98-107); Glucose 119 mg/dL (74-106)
[2024-08-15] MEDS: SODIUM CHLORIDE 0.9% 2,000 ML IV ONE (14:58)
[2024-08-15 15:15] LABS: Eosinophils % (manual) 1 (0-7); Lymphocytes % (manual) 36 (10.0-50.0); Monocytes % (manual) 7 (0-12); Myelocytes % 3
[2024-08-15 15:16] LABS: Anisocytosis Slight; Giant Platelets Few; Large Platelets FEW; Platelet Estimate Decreased; Sickle Cells FEW; Tear Drop Cells FEW
[2024-08-15 15:35] LABS: COVID19 ANTIGEN SOFIA FIA NEGATIVE (NEGATIVE)
[2024-08-15 15:36] LABS: Rapid Influenza A Negative (Negative); Rapid Influenza B Negative (Negative)
[2024-08-15 18:00] VITALS: PULSE 84; RESP 23; O2SAT 95
[2024-08-15 19:20] VITALS: PULSE 103; RESP 25; O2SAT 97
[2024-08-15] MEDS: GABAPENTIN 300 MG CAP PO ONE (21:17)
[2024-08-15] MEDS: HYDROcodone-ACET 5/325MG TAB PO ONE (21:17)
[2024-08-16] MEDS: ONDANSETRON HCL 4 MG/2 ML VIAL ONE (02:13)
[2024-08-16 08:32] VITALS: PULSE 77; PULSE 95; RESP 17; O2SAT 100; O2SAT 95
[2024-08-16 16:00] VITALS: BP 114/68; PULSE 90; RESP 19; TEMP 98.3; O2SAT 96
== END 2024-08-15 16:52 | disposition home or self-care (01) ==
LOC: ER 12:21
DX: D64.9 Anemia, unspecified (principal); D57.1 Sickle-cell disease without crisis; R53.83 Other fatigue; Z88.0 Allergy status to penicillin; Z88.2 Allergy status to sulfonamides; Z79.899 Other long term (current) drug therapy; Z20.822 Contact with and (suspected) exposure to COVID-19
CPT/HCPCS: 36415; 80053; 85007; 85027; 85045; 86850; 86900; 86901; 87426; 87804; 96360; 96361; 99285; J7030; 86870; 86880; 86906